=== PATIENT | male | born 1980 | race American Indian/Alaskan Native ===

== ENCOUNTER 2017-11-10 23:48 | Emergency (ER) | payer MEDICARE, MEDICAID ==
[2017-11-11 00:56] VITALS: BP 116/77; PULSE 85; RESP 17; TEMP 98.6; O2SAT 100
[2017-11-11 01:14] LABS: BASO % 0.7 % (0.0-2.0); EOS # 0.2 K/uL (0.0-0.7); EOS % 3.2 % (0.0-4.0); LYMPH # 1.6 K/uL (1.0-4.3); LYMPH % 25.9 % (20.0-40.0); MEAN CELL VOLUME 105.6 fl (80.0-94.0); MEAN CORPUSCULAR HEMOGLOBIN 34.4 pg (27.0-31.0); MEAN CORPUSCULAR HGB CONC 32.6 g/dL (33.0-37.0); MEAN PLATELET VOLUME 8.2 fl (7.2-11.7); MONO # 0.6 K/uL (0.0-0.8); MONO % 9.1 % (0.0-10.0); NEUT # 3.7 K/uL (1.8-7.0); NEUT % 61.1 % (50.0-75.0); RBC 2.63 Mil/uL (4.40-5.90); RED CELL DISTRIBUTION WIDTH 15.8 % (11.5-14.5); WHITE BLOOD COUNT 6.1 K/uL (4.8-10.8)
[2017-11-11 01:35] LABS: ALBUMIN 4.5 g/dL (3.5-5.0); ALT/SGPT 27 U/L (21-72); AST/SGOT 25 U/L (17-59); BLOOD UREA NITROGEN 82 mg/dl (9-20); CALCIUM 9.3 mg/dL (8.4-10.2); GFR AFRICAN-AMERICAN 4; GFR NON-AFRICAN AMERICAN 3; LIPASE 128 U/L (23-300); MAGNESIUM 2.9 MG/DL (1.6-2.3)
[2017-11-11] MEDS ORDERED: HYDROmorphone 0.5 mg/0.5 ml ISec IVP STA (01:41)
[2017-11-11] MEDS ORDERED: Iohexol 240 (50 ml) PO STA (01:45)
[2017-11-11] MEDS ORDERED: Trimethobenzamide 200 mg/2 mL Inj IM ONE (01:50)
[2017-11-11] MEDS ORDERED: DiphenhydrAMINE 50 mg/ml Inj IVP STA (02:11)
[2017-11-11] MEDS ORDERED: Iohexol 240 (50 ml) ONE (02:15)
--- NOTE | 2017-11-11 03:45 | ED PDOC ---
"HPI: Abdomen Time Seen by Provider: 11/11/17 00:44 Chief Complaint (Nursing): Abdominal Pain Chief Complaint (Provider): abdominal pain History Per: Patient (37 y/o male h/o ESRD Dialysis MWF and h/o pancreatitis here with generalized abdominal pain daily this week. NOtes diarrhea multiple episodes yesterday hourly. Denies any vomiting. ) Past Medical History Reviewed: Historical Data, Nursing Documentation, Vital Signs Vital Signs: Last Vital Signs Temp 98.6 F 11/10/17 23:56 Pulse 85 11/10/17 23:56 Resp 17 11/10/17 23:56 BP 116/77 11/10/17 23:56 Pulse Ox 100 11/11/17 03:47 - Medical History PMH: HTN, Hypercholesterolemia, End Stage Renal Disease, Chronic Kidney Disease - Family History Family History: States: No Known Family Hx - Immunization History Hx Tetanus Toxoid Vaccination: No Hx Influenza Vaccination: Yes Hx Pneumococcal Vaccination: Yes - Home Medications Home Medications: Ambulatory Orders Medication Instructions Recorded Calcitriol 1 tab PO DAILY 06/05/17 Calcium Acetate [Phoslo] 667 mg PO TID 06/05/17 Calcium Carbonate 2,500 mg PO Q8H 06/05/17 Cholecalciferol [Vitamin D 1000 IU] 2,000 units PO DAILY 06/05/17 Docusate [Colace] 100 mg PO PRN 06/05/17 HYDROmorphone [Dilaudid 2 mg Tab] 2 mg PO PRN 06/05/17 Esomeprazole Magnesium [Nexium] 20 mg PO DAILY #3 capsule. 11/11/17 - Allergies Allergies/Adverse Reactions: Allergies Allergy/AdvReac Type Severity Reaction Status Date / Time shellfish derived Allergy ANAPHYLAXIS Verified 06/05/17 22:51 Review of Systems ROS Statement: Except As Marked, All Systems Reviewed And Found Negative Gastrointestinal: Positive for: Diarrhea Physical Exam - Reviewed Nursing Documentation Reviewed: Yes Vital Signs Reviewed: Yes - Physical Exam Appears: Positive for: Well, Non-toxic, No Acute Distress Head Exam: Positive for: ATRAUMATIC, NORMAL INSPECTION, NORMOCEPHALIC Skin: Positive for: Normal Color, Warm, DRY Eye Exam: Positive for: EOMI, Normal appearance, PERRL ENT: Positive for: Normal ENT Inspection Neck: Positive for: Normal, Painless ROM Cardiovascular/Chest: Positive for: Regular Rate, Rhythm Respiratory: Positive for: CNT, Normal Breath Sounds Gastrointestinal/Abdominal: Positive for: Normal Exam, Bowel Sounds, Soft, Tenderness (generalized tenderness noted) Back: Positive for: Normal Inspection Extremity: Positive for: Normal ROM Neurologic/Psych: Positive for: Alert, Oriented - Laboratory Results Result Diagrams: 11/11/17 01:10 11/11/17 01:10 - ECG ECG Rhythm: Positive for: Sinus Rhythm (NSR 76bpm no ectopy no acute changes LVH ; QT/QT c 428/481 t wave inv noted avL) O2 Sat by Pulse Oximetry: 100 - Progress ED Course And Treament: zofran 2 mg iv x 1 dose DILAUDID 0.5 MG IV X 1 DOSE ABDOMEN:Limitations: Absence of IV contrast decreases sensitivity for detecting vascular and visceral injury and abnormality. Liver: Unremarkable. Gallbladder and bile ducts: Unremarkable. No ductal dilation. Pancreas: Unremarkable. No ductal dilation. Spleen: Unremarkable. No splenomegaly. Adrenals: Unremarkable. No mass. Kidneys and ureters: Nonobstructive renal stones. Bilateral medullary nephrocalcinosis cortical thinning.There are multiple renal hypodensities that cannot be further characterized on the current examination. Correlation with patient's clinical history of chronic renal failure is recommended. Stomach and bowel: Diverticulosis. No obstruction. No mucosal thickening. Appendix: Normal appendix. PELVIS: Bladder: Partially decompressed bladder with bladder wall thickening versus nonfunctional bladder due to renal failure. Correlation with urinalysis is recommended only if clinical cystitis is suspected. Reproductive: Unremarkable. NATHANIEL HERNÁNDEZ | Final Radiology Report CONFIDENTIALITY STATEMENT This report is intended only for use by the referring physician, and only in accordance with law. If you received this in error, call [phone]. Page 2 of 2 ABDOMEN and PELVIS: Intraperitoneal space: Unremarkable. No free air. No significant fluid collection. Bones/joints: Severe osteopenia osteoporosis with sclerosis representing renal osteodystrophy. Compression fracture deformities of T8 and T9 with vertebroplasty cement. Soft tissues: Right periumbilical fat containing hernia. Ventral hernia. Vasculature: The aorta demonstrates calcified plaque and is mildly ectatic but normal in caliber. No abdominal aortic aneurysm. Advanced atherosclerotic vascular disease likely due to renal failure. Lymph nodes: Unremarkable. No enlarged lymph nodes. IMPRESSION: 1. Renal and bladder findings as described correlation with patient's history of chronic renal failure is recommended. Thank you for allowing us to participate in the care of your patient. Dictated and Authenticated by: Najma Nova MD Patient has appointment for dialysis today at 3pm. Will d/c home for f/u with pmd and dialysis today. Disposition - Clinical Impression Clinical Impression: Gastroenteritis - Patient ED Disposition Is Patient to be Admitted: No - Disposition Referrals: David Valente MD [Primary Care Provider] - Disposition: Routine/Home Disposition Time: 05:48 Condition: FAIR Prescriptions: Esomeprazole Magnesium [Nexium] 20 mg PO DAILY #3 capsule.dr Forms: [employer] (French)"
[2017-11-11] MEDS ORDERED: Sodium Chloride 0.9% 0 ML IV ONE (03:49)
[2017-11-11] MEDS ORDERED: Iohexol 300 100 ML IJ ONE (03:49)
--- NOTE | 2017-11-11 05:19 | CT ---
EXAM: CT Abdomen and Pelvis Without Intravenous Contrast CLINICAL HISTORY: 37 years old, male; Pain; Abdominal pain; Periumbilical; Additional info: Abd pain TECHNIQUE: Axial computed tomography images of the abdomen and pelvis without intravenous contrast. All CT scans at this facility use one or more dose reduction techniques, viz.: automated exposure control; ma/kV adjustment per patient size (including targeted exams where dose is matched to indication; i.e. head); or iterative reconstruction technique. 534 images are submitted.Limitations: Absence of IV contrast decreases sensitivity for detecting vascular and visceral injury and abnormality. Coronal and sagittal reformatted images were created and reviewed. COMPARISON: No relevant prior studies available. FINDINGS: Lower thorax: Bibasilar lingular nonspecific infiltrates are present, consistent with atelectasis or pneumonia. Cardiomegaly. ABDOMEN:Limitations: Absence of IV contrast decreases sensitivity for detecting vascular and visceral injury and abnormality. Liver: Unremarkable. Gallbladder and bile ducts: Unremarkable. No ductal dilation. Pancreas: Unremarkable. No ductal dilation. Spleen: Unremarkable. No splenomegaly. Adrenals: Unremarkable. No mass. Kidneys and ureters: Nonobstructive renal stones. Bilateral medullary nephrocalcinosis cortical thinning.There are multiple renal hypodensities that cannot be further characterized on the current examination. Correlation with patient's clinical history of chronic renal failure is recommended. Stomach and bowel: Diverticulosis. No obstruction. No mucosal thickening. Appendix: Normal appendix. PELVIS: Bladder: Partially decompressed bladder with bladder wall thickening versus nonfunctional bladder due to renal failure. Correlation with urinalysis is recommended only if clinical cystitis is suspected. Reproductive: Unremarkable. ABDOMEN and PELVIS: Intraperitoneal space: Unremarkable. No free air. No significant fluid collection. Bones/joints: Severe osteopenia osteoporosis with sclerosis representing renal osteodystrophy. Compression fracture deformities of T8 and T9 with vertebroplasty cement. Soft tissues: Right periumbilical fat containing hernia. Ventral hernia. Vasculature: The aorta demonstrates calcified plaque and is mildly ectatic but normal in caliber. No abdominal aortic aneurysm. Advanced atherosclerotic vascular disease likely due to renal failure. Lymph nodes: Unremarkable. No enlarged lymph nodes. IMPRESSION: 1. Renal and bladder findings as described correlation with patient's history of chronic renal failure is recommended.
--- NOTE | 2017-11-11 10:58 | RAD ---
HISTORY: routine COMPARISON: CT chest dated 01/31/2014. FINDINGS: LUNGS: Bibasilar atelectasis. PLEURA: No significant pleural effusion identified, no pneumothorax apparent. CARDIOVASCULAR: Atherosclerotic aortic calcifications. Cardiomediastinal silhouette stably enlarged. OSSEOUS STRUCTURES: Unchanged. VISUALIZED UPPER ABDOMEN: Normal. OTHER FINDINGS: None. IMPRESSION: Bibasilar atelectasis.
--- NOTE | 2017-11-11 18:08 | CARD ---
APPROVED REPORT EKG Measurement Heart [id number] DC [id number] [id number] <Conclusion> Normal sinus rhythm Minimal voltage criteria for LVH, may be normal variant Prolonged QT Abnormal ECG
== END 2017-11-11 06:00 | disposition home or self-care (01) ==
LOC: H.ER 23:48
DX: K52.9 Noninfective gastroenteritis and colitis, unspecified (principal); N18.6 End stage renal disease; I12.0 Hypertensive chronic kidney disease with stage 5 chronic kidney disease or end stage renal disease; Z99.2 Dependence on renal dialysis; E78.00 Pure hypercholesterolemia, unspecified
CPT/HCPCS: 71045; 74176; 80053; 83690; 83735; 84484; 85025; 87804; 93005; 96374; 96375; 99282; J1170; J2405

== ENCOUNTER 2017-12-10 01:41 | Inpatient (IN) | payer MEDICARE, MEDICAID ==
[2017-12-10] MEDS ORDERED: Sodium Chloride 0.9% 250 ML IV STA (02:13)
--- NOTE | 2017-12-10 02:31 | ED PDOC ---
HPI: Abdomen Time Seen by Provider: 12/10/17 01:52 Chief Complaint (Nursing): Abdominal Pain Chief Complaint (Provider): Abdominal Pain, Vomiting, and Diarrhea History Per: Patient History/Exam Limitations: no limitations Onset/Duration Of Symptoms: Days (1 day ago) Current Symptoms Are (Timing): Still Present Additional Complaint(s): 37 yo male, brought in by EMS, with a history of end stage renal disease, hyperparathyroidism, and a parathyroidectomy, presents to the ED complaining of abdominal pain, 6 episodes of diarrhea, with blood on the last episode, and 6 episodes of non-bloody, non-bilious vomiting, onset of 1 day ago. Patient is currently on hemodialysis on Tuesday, , and Tuesday. Of note, patient reports of having a fever this morning, but denies any cough, shortness of breath, or chest pain. Past Medical History Reviewed: Historical Data, Nursing Documentation, Vital Signs Vital Signs: Last Vital Signs Temp 97.9 F 12/11/17 00:42 Pulse 79 12/11/17 00:42 Resp 18 12/11/17 00:42 BP 109/71 12/11/17 00:42 Pulse Ox 100 12/11/17 00:42 - Medical History PMH: HTN, Hypercholesterolemia, End Stage Renal Disease, Chronic Kidney Disease Other PMH: hyperparathyroidism - Surgical History Other surgeries: parathyroidectomy - Family History Family History: States: Unknown Family Hx - Social History Current smoker - smoking cessation education provided: No Ex-Smoker (has not smoked in the last 12 months): No Alcohol: None Drugs: Denies - Immunization History Hx Tetanus Toxoid Vaccination: No Hx Influenza Vaccination: Yes Hx Pneumococcal Vaccination: Yes - Home Medications Home Medications: Ambulatory Orders Medication Instructions Recorded Calcitriol 0.5 mcg PO BID 06/05/17 Calcium Acetate [Phoslo] 2 tab PO Q8 06/05/17 Calcium Carbonate 2,500 mg PO Q8H 06/05/17 Cholecalciferol [Vitamin D 1000 IU] 1,000 units PO DAILY 06/05/17 Docusate [Colace] 100 mg PO TID 06/05/17 HYDROmorphone [Dilaudid 2 mg Tab] 2 mg PO Q6 06/05/17 Aspirin [Aspirin Chewable] 81 mg PO DAILY 12/10/17 Calcium Carbonate/Vitamin D2 1 each PO Q8 12/10/17 [Calcium Oys Shell 250 mg Tab] Famotidine [Pepcid] 20 mg PO DAILY 12/10/17 Simvastatin 10 mg PO DAILY 12/10/17 amLODIPine [Norvasc] 5 mg PO DAILY 12/10/17 - Allergies Allergies/Adverse Reactions: Allergies Allergy/AdvReac Type Severity Reaction Status Date / Time shellfish derived Allergy ANAPHYLAXIS Verified 06/05/17 22:51 Review of Systems ROS Statement: Except As Marked, All Systems Reviewed And Found Negative Constitutional: Positive for: Fever Cardiovascular: Negative for: Chest Pain Respiratory: Negative for: Cough, Shortness of Breath Gastrointestinal: Positive for: Vomiting, Abdominal Pain, Diarrhea, Hematochezia. Negative for: Hematemesis Physical Exam - Reviewed Nursing Documentation Reviewed: Yes Vital Signs Reviewed: Yes - Physical Exam Appears: Positive for: Well, Non-toxic, No Acute Distress Head Exam: Positive for: ATRAUMATIC, NORMAL INSPECTION, NORMOCEPHALIC Skin: Positive for: Normal Color, Warm, DRY Eye Exam: Positive for: EOMI, Normal appearance, PERRL ENT: Positive for: Other (dry mucus membranes) Cardiovascular/Chest: Positive for: Regular Rate, Rhythm. Negative for: Murmur Respiratory: Positive for: Normal Breath Sounds. Negative for: Respiratory Distress Gastrointestinal/Abdominal: Positive for: Tenderness (diffuse abdominal tenderness), Other (well-healed surgical scar along the midline from previous peritoneal dialysis catheter). Negative for: Mass, Guarding, Rebound - Laboratory Results Result Diagrams: 12/10/17 02:37 12/10/17 15:00 - ECG O2 Sat by Pulse Oximetry: 98 (RA) Pulse Ox Interpretation: Normal - Critical Care Total Time (In Min): 30 Medical Decision Making Medical Decision Making: Time: --02:12 Impression: --37 yo male with abdominal pain and diarrhea in setting of ESRD Plan: --ECG --labs --lipase --ed urine dip --PTT --PT --Bentyl 20mg PO --Pepcid 20mg IV --IV Fluids --Zofran Inj --Blood Culture --urinalysis --heplock Insertion Reassess --04:40 Labs reviewed and are significant for levels of potassium. Morphine 2mg IVP Sodium Bicarbonate 133.8 meq IV Dextrose 50ml IVP Insulin Human Regular 10 units IV Patient to be admitted to the hospital. Diagnosis: hyperkalemia, ESRD, gastroenteritis --05:[address] Gold, nephrology, covering for Dr. Cooley and she agrees with ordering a stat hemodialysis for the patient. mobile dialysis has been called. Scribe Attestation: Documented by Trenton Martel acting as a scribe for Howard Coleman MD. Provider Attestation: All medical record entries made by the Scribe were at my direction and personally dictated by me. I have reviewed the chart and agree that the record accurately reflects my personal performance of the history, physical exam, medical decision making, and the department course for this patient. I have also personally directed, reviewed, and agree with the discharge instructions and disposition. Disposition - Clinical Impression Clinical Impression: ESRD on hemodialysis, Gastroenteritis, Hyperkalemia - Patient ED Disposition Is Patient to be Admitted: Yes - Disposition Disposition Time: 04:40 Condition: FAIR
[2017-12-10] MEDS ORDERED: Morphine 4 MG/ML VIAL IVP ONE ×2 (02:49→04:41)
[2017-12-10 02:55] LABS: BASO # 0.1 K/uL (0.0-0.2); BASO % 0.9 % (0.0-2.0); EOS # 0.2 K/uL (0.0-0.7); EOS % 3.4 % (0.0-4.0); HEMOGLOBIN 9.6 g/dL (12.0-18.0); LYMPH # 1.9 K/uL (1.0-4.3); LYMPH % 30.6 % (20.0-40.0); MEAN CELL VOLUME 105.2 fl (80.0-94.0); MEAN CORPUSCULAR HEMOGLOBIN 35.2 pg (27.0-31.0); MEAN CORPUSCULAR HGB CONC 33.5 g/dL (33.0-37.0); MEAN PLATELET VOLUME 8.1 fl (7.2-11.7); MONO # 0.6 K/uL (0.0-0.8); MONO % 8.8 % (0.0-10.0); NEUT # 3.5 K/uL (1.8-7.0); NEUT % 56.3 % (50.0-75.0); NRBC % 0.1 % (0.0-0.0); RBC 2.71 Mil/uL (4.40-5.90); RED CELL DISTRIBUTION WIDTH 15.4 % (11.5-14.5); WHITE BLOOD COUNT 6.3 K/uL (4.8-10.8)
[2017-12-10] MEDS ORDERED: Morphine 4 MG/ML VIAL ONE ×2 (02:56→05:20)
[2017-12-10 03:31] LABS: ALBUMIN 4.5 g/dL (3.5-5.0); CALCIUM 7.5 mg/dL (8.4-10.2)
[2017-12-10 03:33] LABS: INR 1.1 (0.9-1.2); PARTIAL THROMBOPLASTIN TIME 37.1 Seconds (25.6-37.1); PROTHROMBIN TIME 12.2 Seconds (9.8-13.1)
[2017-12-10] MEDS ORDERED: Insulin Regular 100 units/ml IV ONE (04:40)
[2017-12-10] MEDS ORDERED: Dextrose 50% SYRINGE Inj (50 ml) IVP ONE ×2 (04:40→06:28)
[2017-12-10] MEDS ORDERED: Sodium Bicarbonate 7.5% (0.9 MEQ/ML) 50ML INJ IV ONE ×2 (04:40→04:47)
[2017-12-10] MEDS ORDERED: Insulin Regular 100 units/ml ONE (04:51)
[2017-12-10] MEDS ORDERED: Dextrose 50% SYRINGE Inj (50 ml) ONE (04:51)
[2017-12-10] MEDS ORDERED: NS IV ONE (05:00)
[2017-12-10] MEDS ORDERED: SODIUM BICARBONATE IV ONE (05:00)
[2017-12-10] MEDS ORDERED: DEXTROSE IV ONE (05:00)
[2017-12-10] MEDS ORDERED: Pravastatin Sodium 20 MG TAB PO SCH (09:00)
[2017-12-10] MEDS ORDERED: Calcium Acetate 667 MG Capsule PO SCH (09:00)
--- NOTE | 2017-12-10 09:55 | RAD ---
HISTORY: admit COMPARISON: Portable chest 11/11/2017. FINDINGS: LUNGS: Linear atelectasis identified in the inferior left lung zone. Probable confluence of vascular structures with the anterior right 5th rib. Infiltrate is difficult to completely exclude here for atelectasis. Remaining lung parmar clear. PLEURA: No significant pleural effusion identified, no pneumothorax apparent. CARDIOVASCULAR: Stable cardiomediastinal silhouette OSSEOUS STRUCTURES: No significant abnormalities. VISUALIZED UPPER ABDOMEN: Normal. OTHER FINDINGS: None. IMPRESSION: Limited linear atelectasis noted at the left base, borderline on the right versus crowding of the vascular markings with the right 5th rib anteriorly. No suspicious interval changes grossly.
[2017-12-10] MEDS: Cholecalciferol 1,000 INTLU TAB PO SCH (12:02)
[2017-12-10] MEDS: Pravastatin Sodium 20 MG TAB PO SCH (12:02)
--- NOTE | 2017-12-10 13:34 | CP.PCM.HP ---
History of Present Illness - History of Present Illness History of Present Illness: CC: Abdominal pain. 37 y/o M, Hx of ESRD on HD, brought by EMS to [facility]Gina to be evaluated for abdominal pain in AM DOA with no relief. Pt was c/o of generalized abdominal pain, sharp pain, moderate intensity 5:10 associated to multiple episodes of vomiting, non bloody, non bilious, also 6 episodes of diarrhea, last one while at home with some bloody stool. Worsening symptoms: Pt c/o of tactile fever, no chills, in AM DOA, Bodyache. Aggravated factor: Food. Pt denied: Syncope, dizziness, CP, palpitations, SOB, cough, urinary symptoms, sick contact, recent travel out [place]. PMHx: ESRD on HD TTS, CKD, HTN, Hyperparathyroidism. Present on Admission - Present on Admission Any Indicators Present on Admission: No Review of Systems - Constitutional Constitutional: Fever (low grade) - EENT Eyes: Other (negative) Ears: Other (negative) Nose/Mouth/Throat: Other (negative) - Cardiovascular Cardiovascular: Other (negative) - Respiratory Respiratory: Other (negative) - Gastrointestinal Gastrointestinal: Abdominal Pain, Diarrhea, Vomiting - Genitourinary Genitourinary: Other (negative) - Musculoskeletal Musculoskeletal: Other (bodyache) - Integumentary Integumentary: Other (negative) - Neurological Neurological: Other (negative) - Psychiatric Psychiatric: Other (negative) - Hematologic/Lymphatic Hematologic: Other (negative) Past Patient History - Infectious Disease Hx of Infectious Diseases: None - Past Social History Smoking Status: Never Smoked - CARDIAC Hx Cardiac Disorders: Yes Hx Hypercholesterolemia: Yes Hx Peripheral Edema: Yes - PULMONARY Hx Respiratory Disorders: No - NEUROLOGICAL Hx Neurological Disorder: No - HEENT Hx HEENT Problems: No - RENAL Hx Chronic Kidney Disease: Yes Hx Dialysis: Yes Type of Dialysis Access: Left arm AV Shunt Date of Last Dialysis Treatment: 12/08/17 - ENDOCRINE/METABOLIC Hx Endocrine Disorders: Yes Hx Hyperthyroidism: Yes - HEMATOLOGICAL/ONCOLOGICAL Hx Blood Disorders: Yes Hx Anemia: Yes - MUSCULOSKELETAL/RHEUMATOLOGICAL Hx Falls: No - GENITOURINARY/GYNECOLOGICAL Hx Genitourinary Disorders: No - PSYCHIATRIC Hx Psychophysiologic Disorder: No Hx Substance Use: No - SURGICAL HISTORY Hx Surgeries: Yes Hx Arteriovenous Shunt: Yes Hx Joint Replacement: Yes Other/Comment: bilateral knee replacement, left arm shut, Perm a cath back sx. - ANESTHESIA Hx Anesthesia: Yes Meds Allergies/Adverse Reactions: Allergies Allergy/AdvReac Type Severity Reaction Status Date / Time shellfish derived Allergy ANAPHYLAXIS Verified 06/05/17 22:51 Physical Exam - Constitutional Appears: No Acute Distress - Head Exam Head Exam: NORMAL INSPECTION - Eye Exam Eye Exam: PERRL - ENT Exam ENT Exam: Normal Exam - Neck Exam Neck exam: Positive for: Normal Inspection - Respiratory Exam Respiratory Exam: NORMAL BREATHING PATTERN - Cardiovascular Exam Cardiovascular Exam: REGULAR RHYTHM - GI/Abdominal Exam GI & Abdominal Exam: Normal Bowel Sounds, Soft Additional comments: Midline surgical scar healed. - Extremities Exam Additional comments: L arm AV shunt. B/L TKR - Back Exam Back exam: NORMAL INSPECTION - Neurological Exam Neurological exam: Alert, Oriented x3 Additional comments: No motor /sensory deficit. - Psychiatric Exam Psychiatric exam: Normal Mood - Skin Skin Exam: Warm Results - Vital Signs Recent Vital Signs: Last Vital Signs Temp 97.4 F L 12/10/17 12:20 Pulse 73 12/10/17 12:20 Resp 18 12/10/17 12:20 BP 106/68 12/10/17 12:20 Pulse Ox 100 12/10/17 12:20 reviewed [email or web address].[email or web address] - Labs Result Diagrams: 12/10/17 02:37 12/10/17 15:00 Labs: Laboratory Results - last 24 hr 12/10/17 12/10/17 12/10/17 02:37 02:37 02:37 WBC 6.3 RBC 2.71 L Hgb 9.6 L Hct 28.6 L MCV 105.2 H MCH 35.2 H MCHC 33.5 RDW 15.4 H Plt Count 143 MPV 8.1 Neut % (Auto) 56.3 Lymph % (Auto) 30.6 [place] % (Auto) 8.8 Eos % (Auto) 3.4 Baso % (Auto) 0.9 Neut # (Auto) 3.5 Lymph # (Auto) 1.9 [place] # (Auto) 0.6 Eos # (Auto) 0.2 Baso # (Auto) 0.1 PT 12.2 INR 1.1 APTT 37.1 Sodium 138 Potassium 6.5 H* Chloride 91 L Carbon Dioxide 26 Anion Gap 28 H BUN 87 H Creatinine 15.7 H* Est GFR ( Amer) 4 Est GFR (Non-Af Amer) 4 POC Glucose (mg/dL) Random Glucose 84 Calcium 7.5 L Total Bilirubin 1.1 AST 32 ALT 18 L D Alkaline Phosphatase 69 Total Protein 9.1 H Albumin 4.5 Globulin 4.7 H Albumin/Globulin Ratio 1.0 Lipase 142 12/10/17 12/10/17 12/10/17 04:01 06:27 06:34 WBC RBC Hgb Hct MCV MCH MCHC RDW Plt Count MPV Neut % (Auto) Lymph % (Auto) [place] % (Auto) Eos % (Auto) Baso % (Auto) Neut # (Auto) Lymph # (Auto) [place] # (Auto) Eos # (Auto) Baso # (Auto) PT INR APTT Sodium Potassium 7.0 H* Chloride Carbon Dioxide Anion Gap BUN Creatinine Est GFR ( Amer) Est GFR (Non-Af Amer) POC Glucose (mg/dL) 38 L* 184 H Random Glucose Calcium Total Bilirubin AST ALT Alkaline Phosphatase Total Protein Albumin Globulin Albumin/Globulin Ratio Lipase reviewed J.P. - Imaging and Cardiology Chest x-ray Status: Report reviewed by me (J.P.) Assessment & Plan (1) Gastroenteritis Status: Acute Priority: High (2) Abdominal pain Status: Acute Priority: High (3) ESRD on hemodialysis Status: Chronic Priority: High (4) Hyperkalemia Status: Acute Priority: High - Assessment and Plan (Free Text) Plan: F/U EKG, Blood C-S, Hepatitis panel, continue Dilaudid, Norvasc. Pepcid and rest of Tx. Nephrology consult. - Date & Time Date: 12/10/17 Time: 13:50
[2017-12-10 16:43] LABS: ALBUMIN 4.1 g/dL (3.5-5.0)
--- NOTE | 2017-12-10 18:11 | CP.PCM.CON ---
History of Present Illness - History of Present Illness History of Present Illness: RENAL CONSULT NOTE 37 yr old with esrd, htn, hd tts, admitted with abdominal pain, diarrhea, blood in stools. no edema. no missed hd sessions. 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 and goes to [facility] in [place] noted to have hyperkalemic hence dialysed early this am, emergently Review of Systems - Review of Systems All systems: reviewed and no additional remarkable complaints except Past Patient History - Infectious Disease Hx of Infectious Diseases: None - Past Social History Smoking Status: Never Smoked - CARDIAC Hx Cardiac Disorders: Yes Hx Hypercholesterolemia: Yes Hx Peripheral Edema: Yes - RENAL Hx Chronic Kidney Disease: Yes Hx Dialysis: Yes Type of Dialysis Access: Left arm AV Shunt Date of Last Dialysis Treatment: 12/08/17 - ENDOCRINE/METABOLIC Hx Hyperthyroidism: Yes - MUSCULOSKELETAL/RHEUMATOLOGICAL Hx Falls: No - PSYCHIATRIC Hx Substance Use: No - SURGICAL HISTORY Hx Arteriovenous Shunt: Yes Hx Joint Replacement: Yes Other/Comment: bilateral knee replacement, left arm shut, Perm a cath back sx. - ANESTHESIA Hx Anesthesia: Yes Meds Allergies/Adverse Reactions: Allergies Allergy/AdvReac Type Severity Reaction Status Date / Time shellfish derived Allergy ANAPHYLAXIS Verified 06/05/17 22:51 - Medications Medications: Current Medications Amlodipine Besylate (Norvasc) 5 mg PO DAILY [facility] Last Admin: 12/10/17 10:10 Dose: Not Given Aspirin (Aspirin Chewable) 81 mg PO DAILY [facility] Last Admin: 12/10/17 11:56 Dose: Not Given Calcitriol (Rocaltrol) 0.5 mcg PO BID [facility] Last Admin: 12/10/17 12:02 Dose: Not Given Calcium Acetate (Phoslo) 1,334 mg PO TIDWM [facility] Last Admin: 12/10/17 16:03 Dose: Not Given Cholecalciferol (Vitamin D) 1,000 intlu PO DAILY [facility] Last Admin: 12/10/17 12:02 Dose: Not Given Docusate Sodium (Colace) 100 mg PO TID [facility] Last Admin: 12/10/17 16:02 Dose: Not Given Famotidine (Pepcid) 20 mg PO DAILY [facility] Last Admin: 12/10/17 12:02 Dose: Not Given Hydromorphone HCl (Dilaudid) 2 mg PO Q6 PRN PRN Reason: Pain, severe (8-10) Last Admin: 12/10/17 11:48 Dose: 2 mg Ondansetron HCl (Zofran Inj) 4 mg IVP Q6 PRN PRN Reason: Nausea/Vomiting Pravastatin Sodium (Pravachol) 20 mg PO DAILY [facility] Last Admin: 12/10/17 12:02 Dose: Not Given Physical Exam - Constitutional Appears: Non-toxic, No Acute Distress - Head Exam Head Exam: NORMAL INSPECTION - Eye Exam Eye Exam: Normal appearance - ENT Exam ENT Exam: Mucous Membranes Moist - Neck Exam Neck exam: Positive for: Normal Inspection - Respiratory Exam Respiratory Exam: NORMAL BREATHING PATTERN - Cardiovascular Exam Cardiovascular Exam: +S1, +S2 - GI/Abdominal Exam GI & Abdominal Exam: Soft - Extremities Exam Extremities exam: Positive for: normal inspection - Neurological Exam Neurological exam: Alert, Oriented x3 - Psychiatric Exam Psychiatric exam: Normal Mood - Skin Skin Exam: Dry, Intact Results - Vital Signs Recent Vital Signs: Last Vital Signs Temp 98.3 F 12/10/17 16:34 Pulse 78 12/10/17 16:34 Resp 16 12/10/17 16:34 BP 108/71 12/10/17 16:34 Pulse Ox 96 12/10/17 16:34 - Labs Result Diagrams: 12/10/17 02:37 12/10/17 15:00 Labs: Laboratory Results - last 24 hr 12/10/17 12/10/17 12/10/17 02:37 02:37 02:37 WBC 6.3 RBC 2.71 L Hgb 9.6 L Hct 28.6 L MCV 105.2 H MCH 35.2 H MCHC 33.5 RDW 15.4 H Plt Count 143 MPV 8.1 Neut % (Auto) 56.3 Lymph % (Auto) 30.6 [place] % (Auto) 8.8 Eos % (Auto) 3.4 Baso % (Auto) 0.9 Neut # (Auto) 3.5 Lymph # (Auto) 1.9 [place] # (Auto) 0.6 Eos # (Auto) 0.2 Baso # (Auto) 0.1 PT 12.2 INR 1.1 APTT 37.1 Sodium 138 Potassium 6.5 H* Chloride 91 L Carbon Dioxide 26 Anion Gap 28 H BUN 87 H Creatinine 15.7 H* Est GFR ( Amer) 4 Est GFR (Non-Af Amer) 4 POC Glucose (mg/dL) Random Glucose 84 Calcium 7.5 L Total Bilirubin 1.1 AST 32 ALT 18 L D Alkaline Phosphatase 69 Total Protein 9.1 H Albumin 4.5 Globulin 4.7 H Albumin/Globulin Ratio 1.0 Lipase 142 12/10/17 12/10/17 12/10/17 04:01 06:27 06:34 WBC RBC Hgb Hct MCV MCH MCHC RDW Plt Count MPV Neut % (Auto) Lymph % (Auto) [place] % (Auto) Eos % (Auto) Baso % (Auto) Neut # (Auto) Lymph # (Auto) [place] # (Auto) Eos # (Auto) Baso # (Auto) PT INR APTT Sodium Potassium 7.0 H* Chloride Carbon Dioxide Anion Gap BUN Creatinine Est GFR ( Amer) Est GFR (Non-Af Amer) POC Glucose (mg/dL) 38 L* 184 H Random Glucose Calcium Total Bilirubin AST ALT Alkaline Phosphatase Total Protein Albumin Globulin Albumin/Globulin Ratio Lipase 12/10/17 15:00 WBC RBC Hgb Hct MCV MCH MCHC RDW Plt Count MPV Neut % (Auto) Lymph % (Auto) [place] % (Auto) Eos % (Auto) Baso % (Auto) Neut # (Auto) Lymph # (Auto) [place] # (Auto) Eos # (Auto) Baso # (Auto) PT INR APTT Sodium 138 Potassium 5.1 H Chloride 93 L Carbon Dioxide 29 Anion Gap 21 H BUN 42 H Creatinine 9.6 H* D Est GFR ( Amer) 8 Est GFR (Non-Af Amer) 6 POC Glucose (mg/dL) Random Glucose 115 H Calcium 8.0 L Total Bilirubin 1.0 AST 34 ALT 21 Alkaline Phosphatase 71 Total Protein 8.3 H Albumin 4.1 Globulin 4.2 H Albumin/Globulin Ratio 1.0 Lipase Assessment & Plan - Assessment and Plan (Free Text) Plan: ESRD/HYperkalemia/sec hyperpth/anemia/diarrhea hd tts, done today follow potassium levels continue binders and calcitriol anemia: epo with next hd diarrhea and blood in stools work up per primary team please call us jose [phone]
--- NOTE | 2017-12-10 19:03 | CARD ---
APPROVED REPORT EKG Measurement Heart [id number] <Conclusion> Normal sinus rhythm Prolonged QT Abnormal ECG
[2017-12-11] MEDS: Cholecalciferol 1,000 INTLU TAB PO SCH (09:56)
[2017-12-11] MEDS: Pravastatin Sodium 20 MG TAB PO SCH (09:56)
[2017-12-11 12:12] LABS: HEMOGLOBIN 9.3 g/dL (12.0-18.0); MEAN CELL VOLUME 105.7 fl (80.0-94.0); MEAN CORPUSCULAR HEMOGLOBIN 35.4 pg (27.0-31.0); MEAN CORPUSCULAR HGB CONC 33.5 g/dL (33.0-37.0); RBC 2.63 Mil/uL (4.40-5.90); RED CELL DISTRIBUTION WIDTH 15.2 % (11.5-14.5); WHITE BLOOD COUNT 4.9 K/uL (4.8-10.8)
[2017-12-11 12:38] LABS: ALBUMIN 3.9 g/dL (3.5-5.0); CALCIUM 7.8 mg/dL (8.4-10.2)
[2017-12-11 13:05] LABS: HEPATITIS B SURFACE AG Negative (NEGATIVE)
[2017-12-11 13:11] LABS: HEPATITIS A IGM NEGATIVE (NEGATIVE); HEPATITIS B CORE AB NEGATIVE (NEGATIVE)
[2017-12-11 13:22] LABS: HEPATITIS C ANTIBODY NEGATIVE (NEGATIVE)
--- NOTE | 2017-12-11 15:32 | CP.PCM.DIS ---
Provider - Provider Date of Admission: 12/10/17 04:42 Attending physician: Mann Vaca MD Diagnosis - Discharge Diagnosis (1) Gastroenteritis Status: Acute Priority: High (2) Abdominal pain Status: Acute Priority: High (3) ESRD on hemodialysis Status: Chronic Priority: High (4) Hyperkalemia Status: Acute Priority: High Hospital Course - Lab Results Lab Results: Micro Results 12/10/17 02:37 Blood Blood Culture - Preliminary NO GROWTH AFTER 24 HOURS 12/10/17 02:37 Blood Blood Culture - Preliminary NO GROWTH AFTER 24 HOURS Most Recent Lab Values WBC 4.9 K/uL (4.8-10.8) 12/11/17 12:00 RBC 2.63 Mil/uL (4.40-5.90) L 12/11/17 12:00 Hgb 9.3 g/dL (12.0-18.0) L 12/11/17 12:00 Hct 27.8 % (35.0-51.0) L 12/11/17 12:00 MCV 105.7 fl (80.0-94.0) H 12/11/17 12:00 MCH 35.4 pg (27.0-31.0) H 12/11/17 12:00 MCHC 33.5 g/dL (33.0-37.0) 12/11/17 12:00 RDW 15.2 % (11.5-14.5) H 12/11/17 12:00 Plt Count 119 K/uL (130-400) L D 12/11/17 12:00 MPV 8.1 fl (7.2-11.7) 12/10/17 02:37 Neut % (Auto) 56.3 % (50.0-75.0) 12/10/17 02:37 Lymph % (Auto) 30.6 % (20.0-40.0) 12/10/17 02:37 [place] % (Auto) 8.8 % (0.0-10.0) 12/10/17 02:37 Eos % (Auto) 3.4 % (0.0-4.0) 12/10/17 02:37 Baso % (Auto) 0.9 % (0.0-2.0) 12/10/17 02:37 Neut # (Auto) 3.5 K/uL (1.8-7.0) 12/10/17 02:37 Lymph # (Auto) 1.9 K/uL (1.0-4.3) 12/10/17 02:37 [place] # (Auto) 0.6 K/uL (0.0-0.8) 12/10/17 02:37 Eos # (Auto) 0.2 K/uL (0.0-0.7) 12/10/17 02:37 Baso # (Auto) 0.1 K/uL (0.0-0.2) 12/10/17 02:37 PT 12.2 Seconds (9.8-13.1) 12/10/17 02:37 INR 1.1 (0.9-1.2) 12/10/17 02:37 APTT 37.1 Seconds (25.6-37.1) 12/10/17 02:37 Sodium 140 mmol/l (132-148) 12/11/17 12:00 Potassium 5.3 MMOL/L (3.6-5.0) H 12/11/17 12:00 Chloride 92 mmol/L (98-107) L 12/11/17 12:00 Carbon Dioxide 29 mmol/L (22-30) 12/11/17 12:00 Anion Gap 24 (10-20) H 12/11/17 12:00 BUN 56 mg/dl (9-20) H 12/11/17 12:00 Creatinine 12.1 mg/dl (0.8-1.5) H* D 12/11/17 12:00 Est GFR ( Amer) 6 12/11/17 12:00 Est GFR (Non-Af Amer) 5 12/11/17 12:00 POC Glucose (mg/dL) 184 mg/dL (65-110) H 12/10/17 06:34 Random Glucose 85 mg/dL (75-110) 12/11/17 12:00 Calcium 7.8 mg/dL (8.4-10.2) L 12/11/17 12:00 Total Bilirubin 0.8 mg/dl (0.2-1.3) 12/11/17 12:00 AST 23 U/L (17-59) 12/11/17 12:00 ALT 16 U/L (21-72) L D 12/11/17 12:00 Alkaline Phosphatase 66 U/L (38-126) 12/11/17 12:00 Total Protein 7.8 G/DL (6.3-8.2) 12/11/17 12:00 Albumin 3.9 g/dL (3.5-5.0) 12/11/17 12:00 Globulin 3.9 gm/dL (2.2-3.9) 12/11/17 12:00 Albumin/Globulin Ratio 1.0 (1.0-2.1) 12/11/17 12:00 Lipase 142 U/L (23-300) 12/10/17 02:37 Hepatitis A IgM Ab Negative (NEGATIVE) 12/10/17 11:10 Hep Bs Antigen Negative (NEGATIVE) 12/10/17 11:10 Hep B Core IgM Ab Negative (NEGATIVE) 12/10/17 11:10 Hepatitis C Antibody Negative (NEGATIVE) 12/10/17 11:10 Discharge Exam - Head Exam Head Exam: ATRAUMATIC, NORMAL INSPECTION, NORMOCEPHALIC Discharge Plan - Follow Up Plan Condition: FAIR Disposition: HOME/ ROUTINE
[2017-12-11 17:01] VITALS: BP 117/77; PULSE 80; RESP 16; TEMP 98; O2SAT 100
--- NOTE | 2017-12-12 10:53 | PQF GENQUE ---
Dr. Vaca, Please clarify the type of anemia: if known: i.e. Blood loss anemia, acute Blood loss anemia, chronic Chronic anemia Deficiency anemia (please specify type) Due to/in/with antineoplastic chemotherapy Due to/in/with chronic kidney disease Due to/in/with kidney failure Due to/in/with neoplastic disease Iron deficiency anemia Macrocytic anemia Microcytic anemia Normocytic anemia Postoperative blood loss anemia Pernicious anemia Other anemia (please specify) Clinically unable to determine Unknown H/H:9.6/28.6->9.3/27.8 H and P: Hx. of Anemia: YES Assessment: (1) Gastroenteritis Status: Acute Priority: High (2) Abdominal pain Status: Acute Priority: High (3) ESRD on hemodialysis Status: Chronic Priority: High (4) Hyperkalemia Status: Acute Priority: High Renal consult: Impression: ESRD/HYperkalemia/sec hyperpth/anemia/diarrhea --- anemia: epo with next hd This form is a permanent part of the medical record Clarification of your documentation is requested to better reflect the severity of illness and intensity of treatment of your patient. Indicators present [] Specify: [] [] Specify: [] [] Specify: [] [] Specify: [] Location in the medical record that reflects the above clinical findings: [] Treatment Provided: [] PHYSICIAN'S RESPONSE Based on your medical judgment of the clinical indicators outlined above please clarify the following: [] Practitioner response [] If unable to determine, please check the box, sign and date. Present On Admission (POA) Indicator: [] Present at the time of admission [] Not present at the time of admission [] Clinically Undetermined In responding to this query, please exercise your independent professional judgment. The fact that a question is asked does not imply that any particular answer is desired or expected. Thank you for your clarification on this documentation. If you have any questions please call. * Thank you, Geneva Sandoval RN ext. #[phone] MTDD
== END 2017-12-11 18:24 | disposition home or self-care (01) | DRG 391 ==
LOC: H.ER 01:41 → H.ERHOLD 04:42 → H.TEL 06:40
PROVIDERS: ADMIT Internal Medicine Pulmonary Disease; ATTEND Internal Medicine Pulmonary Disease
PROC: 5A1D70Z Performance of Urinary Filtration, Intermittent, Less than 6 Hours Per Day (ICD-10-PCS; principal; 2017-12-10)
DX: K52.9 Noninfective gastroenteritis and colitis, unspecified (principal); N18.6 End stage renal disease; E87.5 Hyperkalemia; I12.0 Hypertensive chronic kidney disease with stage 5 chronic kidney disease or end stage renal disease; N25.81 Secondary hyperparathyroidism of renal origin; K92.1 Melena; Z99.2 Dependence on renal dialysis; Z96.653 Presence of artificial knee joint, bilateral; E78.00 Pure hypercholesterolemia, unspecified; Z91.013 Allergy to seafood; D64.9 Anemia, unspecified

== ENCOUNTER 2017-12-22 19:55 | Inpatient (IN) | payer MEDICARE, MEDICAID ==
[2017-12-22 21:32] LABS: BASO % 0.3 % (0.0-2.0); EOS # 0.3 K/uL (0.0-0.7); EOS % 4.9 % (0.0-4.0); HEMOGLOBIN 9.8 g/dL (12.0-18.0); LYMPH # 1.9 K/uL (1.0-4.3); LYMPH % 30.4 % (20.0-40.0); MEAN CELL VOLUME 106.7 fl (80.0-94.0); MEAN CORPUSCULAR HEMOGLOBIN 35.8 pg (27.0-31.0); MEAN CORPUSCULAR HGB CONC 33.5 g/dL (33.0-37.0); MEAN PLATELET VOLUME 8.4 fl (7.2-11.7); MONO # 0.5 K/uL (0.0-0.8); MONO % 8.8 % (0.0-10.0); NEUT # 3.4 K/uL (1.8-7.0); NEUT % 55.6 % (50.0-75.0); RBC 2.75 Mil/uL (4.40-5.90); RED CELL DISTRIBUTION WIDTH 15.8 % (11.5-14.5); WHITE BLOOD COUNT 6.2 K/uL (4.8-10.8)
[2017-12-22 21:44] LABS: INR 1.1 (0.9-1.2); PARTIAL THROMBOPLASTIN TIME 35.6 Seconds (25.6-37.1); PROTHROMBIN TIME 12.2 Seconds (9.8-13.1)
[2017-12-22 22:12] LABS: ALBUMIN 4.4 g/dL (3.5-5.0); ALT/SGPT 24 U/L (21-72); AST/SGOT 28 U/L (17-59); CALCIUM 8.4 mg/dL (8.4-10.2)
[2017-12-22 22:13] LABS: BLOOD UREA NITROGEN 83 mg/dl (9-20); GFR AFRICAN-AMERICAN 4; GFR NON-AFRICAN AMERICAN 3
[2017-12-22] MEDS ORDERED: Sodium Bicarbonate 7.5% (0.9 MEQ/ML) 50ML INJ IV ONE (22:13)
[2017-12-22] MEDS ORDERED: Insulin Regular 100 units/ml IV ONE (22:13)
[2017-12-22] MEDS ORDERED: Dextrose 50% SYRINGE Inj (50 ml) IVP ONE (22:13)
[2017-12-22] MEDS ORDERED: Sod Polystyrene Sulf 15 gm/60 ml Susp PO STA (22:22)
[2017-12-22] MEDS ORDERED: Sod Polystyrene Sulf 15 gm/60 ml Susp ONE (22:45)
--- NOTE | 2017-12-22 22:46 | ED PDOC ---
HPI: General Adult Time Seen by Provider: 12/22/17 20:20 Chief Complaint (Nursing): GI Problem Chief Complaint (Provider): GI Problem History Per: Patient History/Exam Limitations: no limitations Onset/Duration Of Symptoms: Days (x1) Current Symptoms Are (Timing): Still Present Additional Complaint(s): 37 year old male with a past medical history of hyperparathyroidism, HTN, end stage renal disease (dialysis T/TH/Sat), left AV fistula, b/l knee replacement, and perineal catheter, who presents to the ED complaining of hematochezia x1 day. Patient reports 2 episodes of blood tinged diarrhea. Also reports several episodes of vomiting with small amounts of blood , no clots. Denies melena. Of note, patient reports missing dialysis today. PMD: Dr. GONZALES Past Medical History Reviewed: Historical Data, Nursing Documentation, Vital Signs Vital Signs: Last Vital Signs Temp 97.7 F 12/23/17 01:06 Pulse 72 12/23/17 01:06 Resp 16 12/23/17 01:06 BP 129/92 H 12/23/17 01:06 Pulse Ox 99 12/23/17 01:06 - Medical History PMH: Anemia, HTN, Hypercholesterolemia, Hyperthyroidism, Peripheral Edema, End Stage Renal Disease (dialysis T//Tue), Chronic Kidney Disease - Surgical History Other surgeries: b/l knee replacement - Family History Family History: States: Unknown Family Hx - Immunization History Hx Tetanus Toxoid Vaccination: No Hx Influenza Vaccination: Yes Hx Pneumococcal Vaccination: Yes - Home Medications Home Medications: Ambulatory Orders Medication Instructions Recorded Calcitriol 0.5 mcg PO BID 06/05/17 Calcium Acetate [Phoslo] 2 tab PO Q8 06/05/17 Calcium Carbonate 2,500 mg PO Q8H 06/05/17 Cholecalciferol [Vitamin D 1000 IU] 1,000 units PO DAILY 06/05/17 Docusate [Colace] 100 mg PO TID 06/05/17 HYDROmorphone [Dilaudid] 2 mg PO Q6 06/05/17 Aspirin [Aspirin Chewable] 81 mg PO DAILY 12/10/17 Calcium Carbonate/Vitamin D2 1 each PO Q8 12/10/17 [Calcium Oys Shell 250 mg Tab] Famotidine [Pepcid] 20 mg PO DAILY 12/10/17 Simvastatin 10 mg PO DAILY 12/10/17 amLODIPine [Norvasc] 5 mg PO DAILY 12/10/17 - Allergies Allergies/Adverse Reactions: Allergies Allergy/AdvReac Type Severity Reaction Status Date / Time shellfish derived Allergy ANAPHYLAXIS Verified 12/22/17 19:58 Review of Systems ROS Statement: Except As Marked, All Systems Reviewed And Found Negative Constitutional: Negative for: Fever Gastrointestinal: Positive for: Vomiting, Diarrhea, Hematochezia, Hematemesis. Negative for: Abdominal Pain Physical Exam - Reviewed Nursing Documentation Reviewed: Yes Vital Signs Reviewed: Yes - Physical Exam Appears: Positive for: Non-toxic, No Acute Distress Head Exam: Positive for: ATRAUMATIC, NORMAL INSPECTION, NORMOCEPHALIC Skin: Positive for: Normal Color, Warm, Dry Eye Exam: Positive for: EOMI, Normal appearance, PERRL ENT: Positive for: Normal ENT Inspection Neck: Positive for: Normal, Painless ROM, Supple Cardiovascular/Chest: Positive for: Regular Rate, Rhythm. Negative for: Murmur Respiratory: Positive for: Normal Breath Sounds. Negative for: Respiratory Distress Gastrointestinal/Abdominal: Positive for: Tenderness (mild epigastric) Back: Positive for: Normal Inspection. Negative for: L CVA Tenderness, R CVA Tenderness, Vertebral Tenderness Extremity: Positive for: Normal ROM. Negative for: Pedal Edema, Deformity Neurologic/Psych: Positive for: Alert, Oriented (x3). Negative for: Motor/ Sensory Deficits - Laboratory Results Result Diagrams: 12/22/17 21:27 12/22/17 21:27 - ECG O2 Sat by Pulse Oximetry: 97 (RA) Pulse Ox Interpretation: Normal - Critical Care Total Time (In Min): 30 Medical Decision Making Medical Decision Making: Time: 20:43 Initial Impression: 37 year old male with GI bleed in setting of known dialysis Plan: --ABO/RH --Blood type and screen --EKG --Alcohol serum --CMP --Drug screen --CBC w/ differential --PTT/PT --Protonix 80 mg IV --Occult Blood, Stool --Reevaluation Time: 22:30 Labs show marked elevation of potassium. --Sodium Bicarbonate --Kayexalate --Dextrose --Insulin Case discussed with Dr. Cooley and STAT dialysis ordered. Patient will be admitted for GI bleed, hyperkalemia, and end stage renal disease. 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 Scribe Attestation: Documented by Jonathon Geiger, acting as a scribe for Howard Coleman MD. Provider Scribe Attestation: All medical record entries made by the Scribe were at my direction and personally dictated by me. I have reviewed the chart and agree that the record accurately reflects my personal performance of the history, physical exam, medical decision making, and the department course for this patient. I have also personally directed, reviewed, and agree with the discharge instructions and disposition. Disposition - Clinical Impression Clinical Impression: Hyperkalemia, Gastrointestinal hemorrhage, End stage renal disease - Patient ED Disposition Is Patient to be Admitted: Yes Counseled Patient/Family Regarding: Studies Performed, Diagnosis - Disposition Disposition Time: 22:30 Condition: GUARDED - Pt Status Changed To: Hospital Disposition Of: Inpatient - Admit Certification Admit to Inpatient:: After my assessment, the patient will require hospitalization for at least two midnights. This is because of the severity of symptoms shown, intensity of services needed, and/or the medical risk in this patient being treated as an outpatient.
[2017-12-22] MEDS ORDERED: Dextrose 50% SYRINGE Inj (50 ml) ONE (22:53)
[2017-12-23] MEDS ORDERED: Pantoprazole 40 MG in Sodium Chloride 0.9% 100 ML IV SCH ×2 (00:15→09:30)
[2017-12-23] MEDS ORDERED: Dextrose 50% SYRINGE Inj (50 ml) IVP ONE (00:24)
--- NOTE | 2017-12-23 09:24 | CP.PCM.HP ---
<Jorge Sapp - Last Filed: 12/23/17 11:50> History of Present Illness - History of Present Illness History of Present Illness: patient evaluated with Dr Morales during rounds 37 y/o M, Hx of ESRD, HTN on HD, presented to ER [facility], c/o abdominal pain. Pt was c/o of generalized abdominal pain, sharp pain, moderate intensity 7:10 associated to multiple episodes of vomiting, some of them with light red blood present and mucus at the beginning and hematochezia that resolved. Pt c/o of fever Yesterday of 102 at home, no chills, cough, dizziness or CP. Patient was admitted to hosp for similar complains last month. Patient takes dilaudid PO at home for "chronic pain". States he missed only 1 HD session. Pt denied: Syncope , dizziness, CP, palpitations, SOB, cough, urinary symptoms, recent travel out [facility]. Admits sick contatc with cold like symptoms. At ED he was found to be hyperkalemic and BUN creat was very elevated. HE was called for emergency HD which he finished overnight. This morning he feels tired and still c/o abd pain for what he was given 1 mg of Morphine overnight. Denies new episodes of hematochezia or hematemesis PMHx: ESRD on HD TTS, HTN, Hyperparathyroidism. Present on Admission - Present on Admission Any Indicators Present on Admission: No Review of Systems - Review of Systems All systems: reviewed and no additional remarkable complaints except - Constitutional Constitutional: Malaise - Gastrointestinal Gastrointestinal: Abdominal Pain, Hematemesis, Hematochezia Past Patient History - Infectious Disease Hx of Infectious Diseases: None - Past Medical History & Family History Past Medical History?: Yes - Past Social History Smoking Status: Never Smoked - CARDIAC Hx Cardiac Disorders: Yes Hx Hypercholesterolemia: Yes Hx Hypertension: Yes Hx Peripheral Edema: Yes - PULMONARY Hx Respiratory Disorders: No - NEUROLOGICAL Hx Neurological Disorder: No - HEENT Hx HEENT Problems: No - RENAL Hx Chronic Kidney Disease: Yes Hx Dialysis: Yes Type of Dialysis Access: Left AV fistula Date of Last Dialysis Treatment: 12/23/17 - ENDOCRINE/METABOLIC Hx Endocrine Disorders: Yes Hx Hyperthyroidism: Yes - HEMATOLOGICAL/ONCOLOGICAL Hx Blood Disorders: Yes Hx AIDS: No Hx Anemia: Yes Hx Human Immunodeficiency Virus (HIV): No - INTEGUMENTARY Hx Dermatological Problems: No - MUSCULOSKELETAL/RHEUMATOLOGICAL Hx Falls: No - GASTROINTESTINAL Hx Gastrointestinal Disorders: No - GENITOURINARY/GYNECOLOGICAL Hx Genitourinary Disorders: No - PSYCHIATRIC Hx Psychophysiologic Disorder: No Hx Substance Use: No - SURGICAL HISTORY Hx Surgeries: Yes Hx Arteriovenous Shunt: Yes Hx Joint Replacement: Yes Other/Comment: bilateral knee replacement, left arm shunt, Permacath, back sx. - ANESTHESIA Hx Anesthesia: Yes Hx Anesthesia Reactions: No Hx Malignant Hyperthermia: No Has any member of the family had a problem w/ anesthesia?: No Meds Allergies/Adverse Reactions: Allergies Allergy/AdvReac Type Severity Reaction Status Date / Time shellfish derived Allergy ANAPHYLAXIS Verified 12/22/17 19:58 Physical Exam - Constitutional Appears: Chronically Ill - Eye Exam Eye Exam: EOMI, PERRL - ENT Exam ENT Exam: Mucous Membranes Moist - Respiratory Exam Respiratory Exam: Clear to Auscultation Bilateral, NORMAL BREATHING PATTERN. absent: Decreased Breath Sounds, Respiratory Distress - Cardiovascular Exam Cardiovascular Exam: REGULAR RHYTHM, +S1, +S2. absent: Gallop - GI/Abdominal Exam GI & Abdominal Exam: Guarding (Mild), Soft, Tenderness (Diffuse). absent: Distended, Rebound, Rigid - Extremities Exam Extremities exam: Negative for: joint swelling, pedal edema, tenderness - Neurological Exam Neurological exam: Alert, Oriented x3 - Psychiatric Exam Psychiatric exam: Normal Affect, Normal Mood - Skin Skin Exam: Warm Results - Vital Signs Recent Vital Signs: Last Vital Signs Temp 97.9 F 12/23/17 08:00 Pulse 84 12/23/17 08:00 Resp 18 12/23/17 08:00 BP 97/58 L 12/23/17 08:00 Pulse Ox 95 12/23/17 08:00 - Labs Result Diagrams: 12/22/17 21:27 12/23/17 09:12 Labs: Laboratory Results - last 24 hr 12/22/17 12/22/17 12/22/17 21:27 21:27 21:27 WBC 6.2 RBC 2.75 L Hgb 9.8 L Hct 29.3 L MCV 106.7 H MCH 35.8 H MCHC 33.5 RDW 15.8 H Plt Count 168 MPV 8.4 Neut % (Auto) 55.6 Lymph % (Auto) 30.4 [place] % (Auto) 8.8 Eos % (Auto) 4.9 H Baso % (Auto) 0.3 Neut # (Auto) 3.4 Lymph # (Auto) 1.9 [place] # (Auto) 0.5 Eos # (Auto) 0.3 Baso # (Auto) 0.0 PT 12.2 INR 1.1 APTT 35.6 Sodium 145 Potassium 6.7 H* D Chloride 97 L Carbon Dioxide 24 Anion Gap 31 H BUN 83 H Creatinine 16.4 H* D Est GFR ( Amer) 4 Est GFR (Non-Af Amer) 3 POC Glucose (mg/dL) Random Glucose 81 Calcium 8.4 Total Bilirubin 0.9 AST 28 ALT 24 Alkaline Phosphatase 79 Total Protein 8.9 H Albumin 4.4 Globulin 4.5 H Albumin/Globulin Ratio 1.0 Alcohol, Quantitative < 10 Blood Type Blood Type Confirm Antibody Screen BBK History Checked 12/23/17 12/23/17 12/23/17 00:23 01:01 06:00 WBC RBC Hgb Hct MCV MCH MCHC RDW Plt Count MPV Neut % (Auto) Lymph % (Auto) [place] % (Auto) Eos % (Auto) Baso % (Auto) Neut # (Auto) Lymph # (Auto) [place] # (Auto) Eos # (Auto) Baso # (Auto) PT INR APTT Sodium Potassium Chloride Carbon Dioxide Anion Gap BUN Creatinine Est GFR ( Amer) Est GFR (Non-Af Amer) POC Glucose (mg/dL) 37 L* 141 H Random Glucose Calcium Total Bilirubin AST ALT Alkaline Phosphatase Total Protein Albumin Globulin Albumin/Globulin Ratio Alcohol, Quantitative Blood Type O POSITIVE Blood Type Confirm Antibody Screen Negative BBK History Checked No verified bt 12/23/17 07:20 WBC RBC Hgb Hct MCV MCH MCHC RDW Plt Count MPV Neut % (Auto) Lymph % (Auto) [place] % (Auto) Eos % (Auto) Baso % (Auto) Neut # (Auto) Lymph # (Auto) [place] # (Auto) Eos # (Auto) Baso # (Auto) PT INR APTT Sodium Potassium Chloride Carbon Dioxide Anion Gap BUN Creatinine Est GFR ( Amer) Est GFR (Non-Af Amer) POC Glucose (mg/dL) Random Glucose Calcium Total Bilirubin AST ALT Alkaline Phosphatase Total Protein Albumin Globulin Albumin/Globulin Ratio Alcohol, Quantitative Blood Type Blood Type Confirm O POSITIVE Antibody Screen BBK History Checked Assessment & Plan - Assessment and Plan (Free Text) Assessment: SHAYY on ESRD S/P Emergency HD BUN/Creat improved today Nephro consult appreciated. Will f/u recs Chronic abd pain/GI bleeding Opioid abuse poss dependency Similar symptoms last month was treated as gastroenteritis Patient requesting pain meds Unwitnessed upper/lower GI bleeding C/W Protonix GI consult appreciated CT abd and pelvis : Incidental findings unlikely related to clinical presentation: Please read report Supportive care <MoralesBeny Odalis - Last Filed: 12/24/17 11:04> Results - Vital Signs Recent Vital Signs: Last Vital Signs Temp 97.9 F 12/24/17 08:00 Pulse 88 12/24/17 08:49 Resp 20 12/24/17 08:00 BP 126/77 12/24/17 08:49 Pulse Ox 100 12/24/17 08:00 - Labs Result Diagrams: 12/22/17 21:27 12/23/17 09:12 Labs: Laboratory Results - last 24 hr 12/24/17 12/24/17 07:15 08:00 Amylase 114 H Lipase 80 Vitamin B12 645 Assessment & Plan - Assessment and Plan (Free Text) Assessment: Patient was personally seen and examined by me in rounds with residents. Available labs and diagnostic data reviewed. Case, patient's conditions and management plan discussed with residents in rounds. Agree with resident's progress note. Plan: As ordered.
[2017-12-23 09:38] LABS: CALCIUM 8.6 mg/dL (8.4-10.2)
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
--- NOTE | 2017-12-23 13:21 | CARD ---
APPROVED REPORT EKG Measurement Heart [id number] <Conclusion> Normal sinus rhythm Voltage criteria for left ventricular hypertrophy Prolonged QT Abnormal ECG
[2017-12-23] MEDS: HYDROmorphone 0.5 mg/0.5 ml ISec IVP PRN ×2 (17:11→21:19)
[2017-12-24] MEDS: HYDROmorphone 0.5 mg/0.5 ml ISec IVP PRN ×6 (01:32→22:36)
[2017-12-24 08:31] LABS: AMYLASE 114 U/L (30-110); LIPASE 80 U/L (23-300)
[2017-12-24] MEDS: Pantoprazole 40 mg EC Tab PO SCH (08:50)
[2017-12-24] MEDS: Multivitamin Vitamin B Complex (Nephro-Vite) Tab PO SCH (08:50)
--- NOTE | 2017-12-24 08:54 | PN ---
DATE: 12/24/2017 SUBJECTIVE: The patient is seen and examined. Interim events noted. Consults noted and appreciated. Gastroenterology and nephrology consult and intervention noted and appreciated. The patient remains in Progressive Care Unit on telemetry monitoring. Feels sick and complains of abdominal pain, although no active bleeding. No chest pain or shortness of breath. PHYSICAL EXAMINATION: GENERAL: The patient is in no acute distress. VITAL SIGNS: Stable. HEART: S1 and S2, normal and regular. LUNGS: Good bilateral air exchange. ABDOMEN: Soft and nontender. No organomegaly. No fluids. Bowel sounds are plus and normal. No sign of acute abdomen. No guarding, no rigidity, no rebound. EXTREMITIES: No edema, no calf swelling. No tenderness. No acute ischemia. INTELLIGENCE AGENT: Essentially unchanged. DIAGNOSTIC DATA: Available diagnostic data reviewed. Telemetry monitoring does not reveal any arrhythmias. PLAN: Overall, the patient's general medical condition is stable. Plan as ordered. Beny Morales MD
--- NOTE | 2017-12-24 14:26 | CP.PCM.PN ---
<KdYashira - Last Filed: 12/24/17 14:24> Subjective - Date & Time of Evaluation Date of Evaluation: 12/24/17 Time of Evaluation: 12:00 - Subjective Subjective: GI Fellow PGY 4 Progress Note Pt seen and evaluated at bedside, pt getting HD in room. Pt reports abdominal pain and nausea with eating but no vomiting and passing a lot of gas. ROS: A 12pt ROS was negative except as above. Objective - Vital Signs/Intake and Output Vital Signs (last 24 hours): Temp Pulse Resp BP Pulse Ox 97.8 F 86 19 111/78 100 12/24/17 12:29 12/24/17 12:29 12/24/17 12:29 12/24/17 12:29 12/24/17 12:29 - Medications Medications: Current Medications Calcitriol (Rocaltrol) 0.5 mcg PO TID [facility] Last Admin: 12/24/17 13:20 Dose: Not Given Calcium Carbonate (Oscal) 500 mg PO BID [facility] Last Admin: 12/24/17 08:50 Dose: 500 mg Cinacalcet (Sensipar) 30 mg PO DAILY [facility] Last Admin: 12/24/17 08:52 Dose: 30 mg Docusate Sodium (Colace) 100 mg PO TID [facility] Last Admin: 12/24/17 13:19 Dose: Not Given Hydromorphone HCl (Dilaudid) 0.5 mg IVP Q4H PRN PRN Reason: Pain, severe (8-10) Stop: 12/25/17 16:46 Last Admin: 12/24/17 13:49 Dose: 0.5 mg Metoclopramide HCl (Reglan) 10 mg PO [facility] Metoprolol Tartrate (Lopressor) 25 mg PO BID [facility] Last Admin: 12/24/17 08:49 Dose: Not Given Ondansetron HCl (Zofran Inj) 4 mg IVP Q6 PRN PRN Reason: Nausea/Vomiting Pantoprazole Sodium (Protonix Ec Tab) 40 mg PO ACB [facility] Last Admin: 12/24/17 08:50 Dose: 40 mg Vitamin B Complex/Vit C/Folic Acid (Nephro-Chey) 1 tab PO DAILY [facility] Last Admin: 12/24/17 08:50 Dose: 1 tab - Labs Labs: 12/22/17 21:27 12/23/17 09:12 PT 12.2 Seconds (9.8-13.1) 12/22/17 21:27 INR 1.1 (0.9-1.2) 12/22/17 21:27 APTT 35.6 Seconds (25.6-37.1) 12/22/17 21:27 - Constitutional Appears: Non-toxic, Toxic - Head Exam Head Exam: ATRAUMATIC, NORMAL INSPECTION, NORMOCEPHALIC - Eye Exam Eye Exam: EOMI, Normal appearance, PERRL - ENT Exam ENT Exam: Mucous Membranes Moist - Respiratory Exam Respiratory Exam: Clear to Ausculation Bilateral, NORMAL BREATHING PATTERN - Cardiovascular Exam Cardiovascular Exam: REGULAR RHYTHM - GI/Abdominal Exam GI & Abdominal Exam: Distended, Soft, Normal Bowel Sounds. absent: Tenderness - Neurological Exam Neurological Exam: Alert, Awake, Oriented x3 - Psychiatric Exam Psychiatric exam: Normal Affect, Normal Mood - Skin Skin Exam: Dry, Intact, Normal Color, Warm Assessment and Plan - Assessment and Plan (Free Text) Assessment: Patient is a 37yo male with PMHx significant for ESRD on HD 2/2 severe HTN, hyperparathyroidism s/p parathyroidectomy who presented to the ED with abdominal pain. 1. Abdominal pain 2. Diarrhea 3. Chronic macrocytic anemia 4. ESRD on HD Plan: -Continue supportive care with pain control -Anti-emetics reglan with meals fro possible gastroparesis -Anemia of chronic illness given ESRD on HD with need for epogen for several years -Chronic anemia stable and unchanged, at baseline since October 2017 -No overt blood loss noted since admission -Recent EGD/Colonoscopy performed at [facility] - no indication for urgent endoscopy/colonoscopy -Pantoprazole 40mg PO -Check stool culture, C diff (given HD pt), ova and parasites -H pylori stool ag -Supportive care -Diet as tolerated -Please call with any questions or concerns <Zuleima Tellez - Last Filed: 12/24/17 16:27> Objective - Vital Signs/Intake and Output Vital Signs (last 24 hours): Temp Pulse Resp BP Pulse Ox 97.6 F 84 16 102/59 L 100 12/24/17 16:07 12/24/17 16:07 12/24/17 16:07 12/24/17 16:07 12/24/17 16:07 - Medications Medications: Current Medications Calcitriol (Rocaltrol) 0.5 mcg PO TID [facility] Last Admin: 12/24/17 13:20 Dose: Not Given Calcium Carbonate (Oscal) 500 mg PO BID [facility] Last Admin: 12/24/17 08:50 Dose: 500 mg Cinacalcet (Sensipar) 30 mg PO DAILY [facility] Last Admin: 12/24/17 08:52 Dose: 30 mg Docusate Sodium (Colace) 100 mg PO TID [facility] Last Admin: 12/24/17 13:19 Dose: Not Given Hydromorphone HCl (Dilaudid) 0.5 mg IVP Q4H PRN PRN Reason: Pain, severe (8-10) Stop: 12/25/17 16:46 Last Admin: 12/24/17 13:49 Dose: 0.5 mg Metoclopramide HCl (Reglan) 10 mg PO [facility] Metoprolol Tartrate (Lopressor) 25 mg PO BID [facility] Last Admin: 12/24/17 08:49 Dose: Not Given Ondansetron HCl (Zofran Inj) 4 mg IVP Q6 PRN PRN Reason: Nausea/Vomiting Pantoprazole Sodium (Protonix Ec Tab) 40 mg PO ACB [facility] Last Admin: 12/24/17 08:50 Dose: 40 mg Vitamin B Complex/Vit C/Folic Acid (Nephro-Chey) 1 tab PO DAILY [facility] Last Admin: 12/24/17 08:50 Dose: 1 tab - Labs Labs: 12/22/17 21:27 12/23/17 09:12 PT 12.2 Seconds (9.8-13.1) 12/22/17 21:27 INR 1.1 (0.9-1.2) 12/22/17 21:27 APTT 35.6 Seconds (25.6-37.1) 12/22/17 21:27 Attending/Attestation - Attestation I have personally seen and examined this patient.: Yes I have fully participated in the care of the patient.: Yes I have reviewed all pertinent clinical information, including history, physical exam and plan: Yes Notes (Text): 12/24/17 16:16 Seen and examined with GI fellow at bedside. In a nutshell this is a 37 year old male with PMHx significant for ESRD on HD 2/2 severe HTN, hyperparathyroidism s/p parathyroidectomy who presented to the ED with abdominal pain and loose stools which has resolved now. Last colonoscopy a year ago with a polyp removed. Hb at baseline. Chronic macrocytic anemia. Getting HD today. Suspect component of anemia of chronic illness given ESRD on HD with need for epogen for several year. Consider checking B12/Folate and consider evaluation on peripheral smear - would defer to hematology evaluation if consulted. Recent EGD/Colonoscopy performed at [facility] - no indication for urgent endoscopy/colonoscopy at this juncture. Pantoprazole 40mg PO QAMAC is adequate - does not need IV. Diet as tolerated. Will sign off now. Thank you for letting us participate in the care of your patient
--- NOTE | 2017-12-24 17:35 | CP.PCM.PN ---
Subjective - Date & Time of Evaluation Date of Evaluation: 12/24/17 Time of Evaluation: 17:33 - Subjective Subjective: Nephrology Consultation Note Assessment: Stable abdomen pain Hypertensive Chronic Kidney Disease (I12.0) End stage renal disease (N18.6) dependence on hemodialysis (Z99.2) (TTS) via AVF Anemia (D64.9), Hyperphosphatemia (E83.39), Secondary Hyperparathyroidism (E21.1 ), HTN (I12.0) Plan: Will plan for HD today as ordered. Continue with Nephrovite 1 tab/day. PRBC as needed for anemia. add GERSON if Hb stays <10 Continue with phos binders Continue with calcitriol, sensipar BP control with meds as ordered. Patient not on RAAS jessica as, Consider if blood pressure stays high Glycemic control, Dialysis consistent diet Further work up/management as per primary team Dose meds/antibiotics (if needed) for ESRD status. Avoid fleets enema/magnesium based laxatives. GI evaluation noted Thanks for allowing me to participate in care of your patient. Will follow patient with you. Please call if any Qs Dr Al Weeks Office: [phone] Subjective: Noted events overnight. Patients feels okay. Denies chest pain, palpitation, shortness of breath, leg swelling. All other negative Physical Examination: General Appearance: Comfortable, in no acute respiratory distress, co-operative . Vitals reviewed and noted as below Head; Atraumatic, normocephalic ENT: no ulcers no thrush. Tongue is midline. Oropharynx: no rash or ulcers. EYES: Pupils are equal, round and reactive to light accommodation. Eye muscles and extraocular movement intact. Sclera is anicteric. Neck; supple no lymphadenopathy, no thyromegaly or bruit Lungs: Normal respiratory rate/effort. Breath sounds bilateral equal and clear Heart: Normal rate. s1s2 normal. No rub or gallop. Extremities: no edema. No varicose veins Neurological: Patient is alert, awake and oriented to person, place and time. No focal deficit. Strength bilateral appropriate and equal Skin: Warm and dry. Normal turgor. No rash. Palpitation: Normal elasticity for age Abdomen: Abdomen is soft. Bowel sounds +. There is no abdominal tenderness, no guarding/rigidity or organomegaly Psych: normal insight and normal affect/mood MSK: no joint tenderness or swelling. Digits and nails normal, no deformity : kidney or bladder not palpable Access: AVF Labs/imaging reviewed. Past medical history, past surgical history, family history, social history, allergy reviewed and noted as below Family Hx: no hx of CKD. Non contributory Objective - Vital Signs/Intake and Output Vital Signs (last 24 hours): Temp Pulse Resp BP Pulse Ox 97.6 F 84 16 102/59 L 100 12/24/17 16:07 12/24/17 16:07 12/24/17 16:07 12/24/17 16:07 12/24/17 16:07 - Medications Medications: Current Medications Calcitriol (Rocaltrol) 0.5 mcg PO TID [facility] Last Admin: 12/24/17 13:20 Dose: Not Given Calcium Carbonate (Oscal) 500 mg PO BID [facility] Last Admin: 12/24/17 08:50 Dose: 500 mg Cinacalcet (Sensipar) 30 mg PO DAILY [facility] Last Admin: 12/24/17 08:52 Dose: 30 mg Docusate Sodium (Colace) 100 mg PO TID [facility] Last Admin: 12/24/17 13:19 Dose: Not Given Hydromorphone HCl (Dilaudid) 0.5 mg IVP Q4H PRN PRN Reason: Pain, severe (8-10) Stop: 12/25/17 16:46 Last Admin: 12/24/17 13:49 Dose: 0.5 mg Metoclopramide HCl (Reglan) 10 mg PO [facility] Metoprolol Tartrate (Lopressor) 25 mg PO BID [facility] Last Admin: 12/24/17 08:49 Dose: Not Given Ondansetron HCl (Zofran Inj) 4 mg IVP Q6 PRN PRN Reason: Nausea/Vomiting Pantoprazole Sodium (Protonix Ec Tab) 40 mg PO ACB [facility] Last Admin: 12/24/17 08:50 Dose: 40 mg Vitamin B Complex/Vit C/Folic Acid (Nephro-Chey) 1 tab PO DAILY [facility] Last Admin: 12/24/17 08:50 Dose: 1 tab - Labs Labs: 12/22/17 21:27 12/23/17 09:12 PT 12.2 Seconds (9.8-13.1) 12/22/17 21:27 INR 1.1 (0.9-1.2) 12/22/17 21: APTT 35.6 Seconds (25.6-37.1) 12/22/17 21:27
[2017-12-25] MEDS: HYDROmorphone 0.5 mg/0.5 ml ISec IVP PRN ×3 (03:39→13:12)
[2017-12-25] MEDS: Pantoprazole 40 mg EC Tab PO SCH (06:35)
[2017-12-25 08:56] LABS: ALB/GLOB RATIO 0.9 (1.0-2.1); ALBUMIN 4.7 g/dL (3.5-5.0); CALCIUM 9.1 mg/dL (8.4-10.2)
[2017-12-25] MEDS: Multivitamin Vitamin B Complex (Nephro-Vite) Tab PO SCH (08:58)
--- NOTE | 2017-12-25 17:38 | CP.PCM.PN ---
Subjective - Date & Time of Evaluation Date of Evaluation: 12/25/17 Time of Evaluation: 17:37 - Subjective Subjective: Nephrology Consultation Note Assessment: Stable abdomen pain Hypertensive Chronic Kidney Disease (I12.0) End stage renal disease (N18.6) dependence on hemodialysis (Z99.2) (TTS) via AVF Anemia (D64.9), Hyperphosphatemia (E83.39), Secondary Hyperparathyroidism (E21.1 ), HTN (I12.0) Plan: Will plan for HD tuesday as ordered. Continue with Nephrovite 1 tab/day. PRBC as needed for anemia. add GERSON if Hb stays <10 Continue with phos binders Continue with calcitriol, sensipar BP control with meds as ordered. Patient not on RAAS jessica as, Consider if blood pressure stays high Glycemic control, Dialysis consistent diet Further work up/management as per primary team Dose meds/antibiotics (if needed) for ESRD status. Avoid fleets enema/magnesium based laxatives. GI evaluation noted Thanks for allowing me to participate in care of your patient. Will follow patient with you. Please call if any Qs Dr Al Weeks Office: [phone] Subjective: Noted events overnight. Patients feels okay. Denies chest pain, palpitation, shortness of breath, leg swelling. All other negative except abdomen pain Physical Examination: General Appearance: Comfortable, in no acute respiratory distress, co-operative . Vitals reviewed and noted as below Head; Atraumatic, normocephalic ENT: no ulcers no thrush. Tongue is midline. Oropharynx: no rash or ulcers. EYES: Pupils are equal, round and reactive to light accommodation. Eye muscles and extraocular movement intact. Sclera is anicteric. Neck; supple no lymphadenopathy, no thyromegaly or bruit Lungs: Normal respiratory rate/effort. Breath sounds bilateral equal and clear Heart: Normal rate. s1s2 normal. No rub or gallop. Extremities: no edema. No varicose veins Neurological: Patient is alert, awake and oriented to person, place and time. No focal deficit. Strength bilateral appropriate and equal Skin: Warm and dry. Normal turgor. No rash. Palpitation: Normal elasticity for age Abdomen: Abdomen is soft. Bowel sounds +. There is mild abdominal tenderness, no guarding/rigidity or organomegaly Psych: normal insight and normal affect/mood MSK: no joint tenderness or swelling. Digits and nails normal, no deformity : kidney or bladder not palpable Access: AVF Labs/imaging reviewed. Past medical history, past surgical history, family history, social history, allergy reviewed and noted as below Family Hx: no hx of CKD. Non contributory Objective - Vital Signs/Intake and Output Vital Signs (last 24 hours): Temp Pulse Resp BP Pulse Ox 98.5 F 101 H 20 95/63 L 100 12/25/17 16:00 12/25/17 17:31 12/25/17 16:00 12/25/17 17:31 12/25/17 16:00 Intake and Output: 12/25/17 12/25/17 06:59 18:59 Intake Total Balance - Medications Medications: Current Medications Calcitriol (Rocaltrol) 0.5 mcg PO TID [facility] Last Admin: 12/25/17 16:41 Dose: 0.5 mcg Calcium Carbonate (Oscal) 500 mg PO BID [facility] Last Admin: 12/25/17 16:42 Dose: 500 mg Cinacalcet (Sensipar) 30 mg PO DAILY [facility] Last Admin: 12/25/17 08:59 Dose: 30 mg Docusate Sodium (Colace) 100 mg PO TID [facility] Last Admin: 12/25/17 16:41 Dose: 100 mg Hydromorphone HCl (Dilaudid) 0.5 mg IVP Q4 PRN PRN Reason: Pain, severe (8-10) Last Admin: 12/25/17 17:30 Dose: 0.5 mg Metoclopramide HCl (Reglan) 10 mg PO ACHS [facility] Last Admin: 12/25/17 16:41 Dose: Not Given Metoprolol Tartrate (Lopressor) 25 mg PO BID [facility] Last Admin: 12/25/17 17:31 Dose: Not Given Ondansetron HCl (Zofran Inj) 4 mg IVP Q6 PRN PRN Reason: Nausea/Vomiting Pantoprazole Sodium (Protonix Ec Tab) 40 mg PO ACB [facility] Last Admin: 12/25/17 06:35 Dose: 40 mg Vitamin B Complex/Vit C/Folic Acid (Nephro-Chey) 1 tab PO DAILY [facility] Last Admin: 12/25/17 08:58 Dose: 1 tab - Labs Labs: 12/22/17 21:27 12/25/17 07:00 PT 12.2 Seconds (9.8-13.1) 12/22/17 21: INR 1.1 (0.9-1.2) 12/22/17 21: APTT 35.6 Seconds (25.6-37.1) 12/22/17 21:27
--- NOTE | 2017-12-25 23:49 | CP.PCM.PN ---
Subjective - Date & Time of Evaluation Date of Evaluation: 12/25/17 Time of Evaluation: 18:00 Objective - Vital Signs/Intake and Output Vital Signs (last 24 hours): Temp Pulse Resp BP Pulse Ox 98.5 F 101 H 20 95/63 L 100 12/25/17 16:00 12/25/17 17:31 12/25/17 16:00 12/25/17 17:31 12/25/17 16:00 - Medications Medications: Current Medications Calcitriol (Rocaltrol) 0.5 mcg PO TID [facility] Last Admin: 12/25/17 16:41 Dose: 0.5 mcg Calcium Carbonate (Oscal) 500 mg PO BID [facility] Last Admin: 12/25/17 16:42 Dose: 500 mg Cinacalcet (Sensipar) 30 mg PO DAILY [facility] Last Admin: 12/25/17 08:59 Dose: 30 mg Docusate Sodium (Colace) 100 mg PO TID [facility] Last Admin: 12/25/17 16:41 Dose: 100 mg Hydromorphone HCl (Dilaudid) 0.5 mg IVP Q4 PRN PRN Reason: Pain, severe (8-10) Last Admin: 12/25/17 21:55 Dose: 0.5 mg Metoclopramide HCl (Reglan) 10 mg PO ACHS [facility] Last Admin: 12/25/17 21:59 Dose: 10 mg Metoprolol Tartrate (Lopressor) 25 mg PO BID [facility] Last Admin: 12/25/17 17:31 Dose: Not Given Ondansetron HCl (Zofran Inj) 4 mg IVP Q6 PRN PRN Reason: Nausea/Vomiting Pantoprazole Sodium (Protonix Ec Tab) 40 mg PO ACB [facility] Last Admin: 12/25/17 06:35 Dose: 40 mg Vitamin B Complex/Vit C/Folic Acid (Nephro-Chey) 1 tab PO DAILY [facility] Last Admin: 12/25/17 08:58 Dose: 1 tab - Labs Labs: 12/22/17 21:27 12/25/17 07:00 PT 12.2 Seconds (9.8-13.1) 12/22/17 21:27 INR 1.1 (0.9-1.2) 12/22/17 21:27 APTT 35.6 Seconds (25.6-37.1) 12/22/17 21:27
[2017-12-26 06:07] LABS: HEMOGLOBIN 12.3 g/dL (12.0-18.0); MEAN CELL VOLUME 107.5 fl (80.0-94.0); MEAN CORPUSCULAR HEMOGLOBIN 36.5 pg (27.0-31.0); RBC 3.36 Mil/uL (4.40-5.90); RED CELL DISTRIBUTION WIDTH 16.1 % (11.5-14.5); WHITE BLOOD COUNT 6.7 K/uL (4.8-10.8)
[2017-12-26 06:58] LABS: CALCIUM 9.6 mg/dL (8.4-10.2)
[2017-12-26] MEDS: Pantoprazole 40 mg EC Tab PO SCH (08:58)
[2017-12-26] MEDS: Multivitamin Vitamin B Complex (Nephro-Vite) Tab PO SCH (08:58)
--- NOTE | 2017-12-26 11:07 | CP.PCM.PN ---
Subjective - Date & Time of Evaluation Date of Evaluation: 12/26/17 Time of Evaluation: 11:04 - Subjective Subjective: Patient M bed complaining of abdominal pain mostly in the right upper quadrant of the abdomen No nausea or vomiting The plan to order a stat ultrasound of the abdomen because he has been complaining since yesterday Objective - Vital Signs/Intake and Output Vital Signs (last 24 hours): Temp Pulse Resp BP Pulse Ox 98.2 F 89 18 121/85 100 12/26/17 06:34 12/26/17 08:59 12/26/17 06:34 12/26/17 08:59 12/26/17 06:34 - Medications Medications: Current Medications Calcitriol (Rocaltrol) 0.5 mcg PO TID [facility] Last Admin: 12/26/17 08:58 Dose: 0.5 mcg Calcium Carbonate (Oscal) 500 mg PO BID [facility] Last Admin: 12/26/17 08:59 Dose: 500 mg Cinacalcet (Sensipar) 30 mg PO DAILY [facility] Last Admin: 12/26/17 08:58 Dose: 30 mg Docusate Sodium (Colace) 100 mg PO TID [facility] Last Admin: 12/26/17 08:58 Dose: 100 mg Hydromorphone HCl (Dilaudid) 0.5 mg IVP Q4 PRN PRN Reason: Pain, severe (8-10) Last Admin: 12/26/17 10:32 Dose: 0.5 mg Metoclopramide HCl (Reglan) 10 mg PO ACHS [facility] Last Admin: 12/26/17 09:04 Dose: Not Given Metoprolol Tartrate (Lopressor) 25 mg PO BID [facility] Last Admin: 12/26/17 08:59 Dose: 25 mg Ondansetron HCl (Zofran Inj) 4 mg IVP Q6 PRN PRN Reason: Nausea/Vomiting Last Admin: 12/26/17 09:04 Dose: 4 mg Pantoprazole Sodium (Protonix Ec Tab) 40 mg PO ACB [facility] Last Admin: 12/26/17 08:58 Dose: 40 mg Vitamin B Complex/Vit C/Folic Acid (Nephro-Chey) 1 tab PO DAILY [facility] Last Admin: 12/26/17 08:58 Dose: 1 tab - Labs Labs: 12/26/17 04:20 12/26/17 04:20 PT 12.2 Seconds (9.8-13.1) 12/22/17 21:27 INR 1.1 (0.9-1.2) 12/22/17 21:27 APTT 35.6 Seconds (25.6-37.1) 12/22/17 21:27 - Constitutional Appears: No Acute Distress - ENT Exam ENT Exam: Mucous Membranes Moist - Neck Exam Neck Exam: absent: Lymphadenopathy - Respiratory Exam Respiratory Exam: NORMAL BREATHING PATTERN. absent: Chest Wall Tenderness, Rales, Respiratory Distress - Cardiovascular Exam Cardiovascular Exam: REGULAR RHYTHM, RRR. absent: JVD, Rubs - GI/Abdominal Exam GI & Abdominal Exam: Guarding, Tenderness, Normal Bowel Sounds Additional comments: Guarding and tenderness mainly in the right upper quadrant of the abdomen - Extremities Exam Extremities Exam: absent: Calf Tenderness - Back Exam Back Exam: absent: CVA tenderness (L), CVA tenderness (R) - Neurological Exam Neurological Exam: Alert - Psychiatric Exam Psychiatric exam: Anxious - Skin Skin Exam: absent: Cyanosis Assessment and Plan (1) End stage renal disease Assessment & Plan: #1 end stage renal disease on hemodialysis TTS scheduled for tomorrow. #2 patient complaining of upper abdomen mainly in the right upper quadrant of the abdomen the plan is stat ultrasound of the abdomen now. #3 hypertension which appears to be controlled. #4 hyperphosphatemia continue combined binders. #5 secondary hyperparathyroidism continue Sensipar #6 anemia continue EPO Status: Acute (2) Gastrointestinal hemorrhage Status: Acute (3) Hyperkalemia Status: Acute (4) Abdominal pain Status: Acute
[2017-12-26 17:42] LABS: FOLATE 14.7 ng/mL
--- NOTE | 2017-12-26 18:25 | US ---
HISTORY: abdominal pain COMPARISON: 11/11/2017 CT abdomen and pelvis is TECHNIQUE: Sonographic evaluation of the abdomen. FINDINGS: LIVER: Measures 14.3 cm. Patent portal vein. Portal venous flow: Hepatopetal. Unremarkable echogenicity of the liver parenchyma. No mass. No intrahepatic bile duct dilatation. GALLBLADDER: Unremarkable. No gallstones. COMMON BILE DUCT: Measures 3.0 mm. No stones. No dilatation. PANCREAS: Unremarkable as visualized. No mass. No ductal dilatation. RIGHT KIDNEY: Measures 5.6 x 10.3cm. Nephrocalcinosis better visualized on recent CT scan. LEFT KIDNEY: Measures 5.7 x 8.8cm. Nephrocalcinosis, better visualized on recent CT. SPLEEN: Normal in size and contour. No mass. AORTA: No aneurysmal dilatation. IVC: Unremarkable. OTHER FINDINGS: None. IMPRESSION: Evidence of nephrocalcinosis/ medullary sponge kidney. However the degree of acoustical shadowing by this process precludes more meaningful assessment. No acute findings apparent on the current study
--- NOTE | 2017-12-26 20:52 | CP.PCM.PN ---
Objective - Vital Signs/Intake and Output Vital Signs (last 24 hours): Temp Pulse Resp BP Pulse Ox 97.8 F 78 19 111/81 100 12/26/17 19:34 12/26/17 19:34 12/26/17 19:34 12/26/17 19:34 12/26/17 19:34 - Medications Medications: Current Medications Calcitriol (Rocaltrol) 0.5 mcg PO TID [facility] Last Admin: 12/26/17 18:50 Dose: 0.5 mcg Calcium Carbonate (Oscal) 500 mg PO BID [facility] Last Admin: 12/26/17 18:52 Dose: 500 mg Cinacalcet (Sensipar) 30 mg PO DAILY [facility] Last Admin: 12/26/17 08:58 Dose: 30 mg Docusate Sodium (Colace) 100 mg PO TID [facility] Last Admin: 12/26/17 18:51 Dose: 100 mg Hydromorphone HCl (Dilaudid) 0.5 mg IVP Q4 PRN PRN Reason: Pain, severe (8-10) Last Admin: 12/26/17 18:47 Dose: 0.5 mg Metoclopramide HCl (Reglan) 10 mg PO ACHS [facility] Last Admin: 12/26/17 18:52 Dose: Not Given Metoprolol Tartrate (Lopressor) 25 mg PO BID [facility] Last Admin: 12/26/17 18:51 Dose: 25 mg Ondansetron HCl (Zofran Inj) 4 mg IVP Q6 PRN PRN Reason: Nausea/Vomiting Last Admin: 12/26/17 09:04 Dose: 4 mg Pantoprazole Sodium (Protonix Ec Tab) 40 mg PO ACB [facility] Last Admin: 12/26/17 08:58 Dose: 40 mg Vitamin B Complex/Vit C/Folic Acid (Nephro-Chey) 1 tab PO DAILY [facility] Last Admin: 12/26/17 08:58 Dose: 1 tab - Labs Labs: 12/26/17 04:20 12/26/17 04:20 PT 12.2 Seconds (9.8-13.1) 12/22/17 21:27 INR 1.1 (0.9-1.2) 12/22/17 21:27 APTT 35.6 Seconds (25.6-37.1) 12/22/17 21:27 Assessment and Plan - Assessment and Plan (Free Text) Assessment: continue to complaint of non specific abdominal pain, spoke to pt will get a non contrast abd CT tomorrow after his HD, if negative, will discharge him from hospital, pt agreed with plan
--- NOTE | 2017-12-27 07:26 | PQF GENQUE ---
Dr. Morales, Etiology of the GI Bleeding? if known after the work up is completed OR: Unable to determine OR: Other explanation of clinical finding H/H:9.8/29.3->12.3/36.1 12/26 Abdomen US; Evidence of nephrocalcinosis/ medullary sponge kidney. However the degree of acoustical shadowing by this process precludes more meaningful assessment. No acute findings apparent on the current study H and P; H and P; SHAYY on ESRD S/P Emergency HD BUN/Creat improved today Nephro consult appreciated. Will f/u recs Chronic abd pain/GI bleeding Opioid abuse poss dependency Similar symptoms last month was treated as gastroenteritis Patient requesting pain meds Unwitnessed upper/lower GI bleeding C/W Protonix GI consult apprec CT abd and pelvis : Incidental findings unlikely related to clinipresentation GI consult: hx. significant for ESRD on HD 2/2 severe HTN, hyperparathyroidism s /p parathyroidectomy who presented to the ED with abdominal pain. -Abdominal pain -Acute diarrheal illness -Chronic macrocytic anemia -ESRD on HD, missed HD with volume overload -Hyperkalemia -Suspect component of anemia of chronic illness given ESRD on HD with need for epogen for several years -Macrocytosis present - check B12/Folate and consider evaluation on peripheral smear - would defer to hematology evalu if consulted -Chronic anemia stable and unchanged, at baseline since October 2017 -No overt blood loss noted since admission -Recent EGD/Colonoscopy performed at [facility] - no indication for urgent endoscopy/colonoscopy at this juncture -Pantoprazole 40mg PO QAMAC is adequate - does not need IV -Check stool culture, C diff (given HD pt), ova and parasites -H pylori stool ag -Supportive care This form is a permanent part of the medical record Clarification of your documentation is requested to better reflect the severity of illness and intensity of treatment of your patient. Indicators present [] Specify: [] [] Specify: [] [] Specify: [] [] Specify: [] Location in the medical record that reflects the above clinical findings: [] Treatment Provided: [] PHYSICIAN'S RESPONSE Based on your medical judgment of the clinical indicators outlined above please clarify the following: [] Practitioner response [] If unable to determine, please check the box, sign and date. Present On Admission (POA) Indicator: [] Present at the time of admission [] Not present at the time of admission [] Clinically Undetermined In responding to this query, please exercise your independent professional judgment. The fact that a question is asked does not imply that any particular answer is desired or expected. Thank you for your clarification on this documentation. If you have any questions please call. * Thank you, Geneva Sandoval RN ext. #[phone] MTDD
[2017-12-27] MEDS: Multivitamin Vitamin B Complex (Nephro-Vite) Tab PO SCH (09:12)
--- NOTE | 2017-12-27 12:05 | CP.PCM.PN ---
Subjective - Date & Time of Evaluation Date of Evaluation: 12/27/17 Time of Evaluation: 12:02 - Subjective Subjective: Patient in bed although he complained of less abdominal pain mostly in the right upper quadrant No nausea or vomiting There is shortness of breath and feeling much better Objective - Vital Signs/Intake and Output Vital Signs (last 24 hours): Temp Pulse Resp BP Pulse Ox 97.2 F L 82 18 102/67 97 12/27/17 11:52 12/27/17 11:52 12/27/17 11:52 12/27/17 11:52 12/27/17 11:52 - Medications Medications: Current Medications Calcitriol (Rocaltrol) 0.5 mcg PO TID [facility] Last Admin: 12/27/17 09:11 Dose: 0.5 mcg Calcium Carbonate (Oscal) 500 mg PO BID [facility] Last Admin: 12/27/17 09:12 Dose: 500 mg Cinacalcet (Sensipar) 30 mg PO DAILY [facility] Last Admin: 12/27/17 09:13 Dose: 30 mg Docusate Sodium (Colace) 100 mg PO TID [facility] Last Admin: 12/27/17 09:11 Dose: 100 mg Famotidine (Pepcid) 20 mg PO BID [facility] Last Admin: 12/27/17 09:12 Dose: 20 mg Hydromorphone HCl (Dilaudid) 0.5 mg IVP Q4 PRN PRN Reason: Pain, severe (8-10) Last Admin: 12/27/17 10:25 Dose: 0.5 mg Metoclopramide HCl (Reglan) 10 mg PO ACHS [facility] Last Admin: 12/27/17 09:12 Dose: Not Given Metoprolol Tartrate (Lopressor) 25 mg PO BID [facility] Last Admin: 12/27/17 09:11 Dose: 25 mg Ondansetron HCl (Zofran Inj) 4 mg IVP Q6 PRN PRN Reason: Nausea/Vomiting Last Admin: 12/26/17 09:04 Dose: 4 mg Vitamin B Complex/Vit C/Folic Acid (Nephro-Chey) 1 tab PO DAILY [facility] Last Admin: 12/27/17 09:12 Dose: 1 tab - Labs Labs: 12/26/17 04:20 12/26/17 04:20 PT 12.2 Seconds (9.8-13.1) 12/22/17 21:27 INR 1.1 (0.9-1.2) 12/22/17 21:27 APTT 35.6 Seconds (25.6-37.1) 12/22/17 21:27 - Constitutional Appears: No Acute Distress - ENT Exam ENT Exam: Mucous Membranes Moist - Neck Exam Neck Exam: absent: Lymphadenopathy - Respiratory Exam Respiratory Exam: NORMAL BREATHING PATTERN. absent: Chest Wall Tenderness, Rhonchi - GI/Abdominal Exam GI & Abdominal Exam: Soft, Normal Bowel Sounds - Extremities Exam Extremities Exam: absent: Calf Tenderness - Back Exam Back Exam: absent: CVA tenderness (L), CVA tenderness (R) - Neurological Exam Neurological Exam: Alert - Psychiatric Exam Psychiatric exam: Anxious, Normal Affect - Skin Skin Exam: absent: Cyanosis Assessment and Plan (1) End stage renal disease Assessment & Plan: End stage renal disease patient about to have dialysis now With sodium bath 138 Potassium bath 2 mEq Bicarbonate 34 Ultrafiltration 1500 mL Ultrasound of the abdomen noted Patient scheduled to have CT scan of the abdomen because of the persistent of abdominal pain Status: Acute (2) Gastrointestinal hemorrhage Status: Acute (3) Hyperkalemia Status: Acute (4) Abdominal pain Status: Acute
--- NOTE | 2017-12-27 14:41 | CT ---
PROCEDURE: CT Abdomen without intravenous contrast HISTORY: Abdominal pain COMPARISON: CT scan of the abdomen pelvis dated 11/11/2017. TECHNIQUE: Contiguous images were obtained from the domes of the diaphragms to the aortic bifurcation without the administration of intravenous contrast. Oral contrast was not administered. Radiation dose: Total exam DLP = 273 mGy-cm. This CT exam was performed using one or more of the following dose reduction techniques: Automated exposure control, adjustment of the mA and/or kV according to patient size, and/or use of iterative reconstruction technique. FINDINGS: LOWER THORAX: Bibasilar atelectasis. Cardiomegaly. Coronary arterial calcifications. LIVER: Unremarkable. No gross lesion or ductal dilatation. GALLBLADDER AND BILE DUCTS: Unremarkable. PANCREAS: Unremarkable. No gross lesion or ductal dilatation. SPLEEN: Unremarkable. ADRENALS: Unremarkable. No mass. KIDNEYS AND URETERS: Stable appearance. Bilateral medullary nephrocalcinosis. Cortical thinning. Bilateral renal cysts. No hydronephrosis. VASCULATURE: Atherosclerotic calcifications. No aortic aneurysm. BOWEL: Unremarkable. No obstruction. No gross mural thickening. PERITONEUM: Right periumbilical fat containing hernia. No free fluid. No free air. LYMPH NODES: Unremarkable. No enlarged lymph nodes. BONES: Severe osteopenia/ osteoporosis and changes from renal osteodystrophy. OTHER FINDINGS: None. IMPRESSION: No acute abdominal pelvic pathology. Stable findings as above.
[2017-12-27] MEDS: HYDROmorphone 0.5 mg/0.5 ml ISec IVP PRN ×3 (14:46→22:59)
--- NOTE | 2017-12-27 21:40 | CP.PCM.PN ---
Objective - Vital Signs/Intake and Output Vital Signs (last 24 hours): Temp Pulse Resp BP Pulse Ox 98.1 F 101 H 20 109/74 97 12/27/17 19:39 12/27/17 21:00 12/27/17 19:39 12/27/17 19:39 12/27/17 19:39 - Medications Medications: Current Medications Calcitriol (Rocaltrol) 0.5 mcg PO TID [facility] Last Admin: 12/27/17 18:15 Dose: Not Given Calcium Carbonate (Oscal) 500 mg PO BID [facility] Last Admin: 12/27/17 18:15 Dose: Not Given Cinacalcet (Sensipar) 30 mg PO DAILY [facility] Last Admin: 12/27/17 09:13 Dose: 30 mg Docusate Sodium (Colace) 100 mg PO TID [facility] Last Admin: 12/27/17 18:15 Dose: Not Given Famotidine (Pepcid) 20 mg PO BID [facility] Last Admin: 12/27/17 18:15 Dose: Not Given Hydromorphone HCl (Dilaudid) 0.5 mg IVP Q4 PRN PRN Reason: Pain, severe (8-10) Last Admin: 12/27/17 19:05 Dose: 0.5 mg Metoclopramide HCl (Reglan) 10 mg PO ACHS [facility] Last Admin: 12/27/17 18:15 Dose: Not Given Metoprolol Tartrate (Lopressor) 25 mg PO BID [facility] Last Admin: 12/27/17 18:15 Dose: Not Given Ondansetron HCl (Zofran Inj) 4 mg IVP Q6 PRN PRN Reason: Nausea/Vomiting Last Admin: 12/26/17 09:04 Dose: 4 mg Vitamin B Complex/Vit C/Folic Acid (Nephro-Chey) 1 tab PO DAILY [facility] Last Admin: 12/27/17 09:12 Dose: 1 tab - Labs Labs: 12/26/17 04:20 12/26/17 04:20 PT 12.2 Seconds (9.8-13.1) 12/22/17 21:27 INR 1.1 (0.9-1.2) 12/22/17 21:27 APTT 35.6 Seconds (25.6-37.1) 12/22/17 21:27
[2017-12-28] MEDS: HYDROmorphone 0.5 mg/0.5 ml ISec IVP PRN ×3 (02:56→11:03)
[2017-12-28 05:37] VITALS: RESP 18
[2017-12-28 08:20] VITALS: O2SAT 100
[2017-12-28] MEDS: Multivitamin Vitamin B Complex (Nephro-Vite) Tab PO SCH (08:58)
[2017-12-28 11:58] VITALS: BP 99/68; PULSE 83; TEMP 97.3
--- NOTE | 2017-12-28 12:47 | CP.PCM.PN ---
Subjective - Date & Time of Evaluation Date of Evaluation: 12/28/17 Time of Evaluation: 12:45 - Subjective Subjective: Patient M bed. Appeared to be comfortable Still complaining of some vague pain in the right upper quadrant No nausea or vomiting Diarrhea no chest pain Objective - Vital Signs/Intake and Output Vital Signs (last 24 hours): Temp Pulse Resp BP Pulse Ox 97.3 F L 83 18 99/68 L 100 12/28/17 11:58 12/28/17 11:58 12/28/17 11:58 12/28/17 11:58 12/28/17 11:58 - Medications Medications: Current Medications Calcitriol (Rocaltrol) 0.5 mcg PO TID [facility] Last Admin: 12/28/17 08:59 Dose: 0.5 mcg Calcium Carbonate (Oscal) 500 mg PO BID [facility] Last Admin: 12/28/17 08:59 Dose: 500 mg Cinacalcet (Sensipar) 30 mg PO DAILY [facility] Last Admin: 12/28/17 08:59 Dose: 30 mg Docusate Sodium (Colace) 100 mg PO TID [facility] Last Admin: 12/28/17 08:57 Dose: 100 mg Famotidine (Pepcid) 20 mg PO BID [facility] Last Admin: 12/28/17 08:59 Dose: 20 mg Hydromorphone HCl (Dilaudid) 0.5 mg IVP Q4 PRN PRN Reason: Pain, severe (8-10) Last Admin: 12/28/17 11:03 Dose: 0.5 mg Metoclopramide HCl (Reglan) 10 mg PO ACHS [facility] Last Admin: 12/28/17 11:05 Dose: 10 mg Metoprolol Tartrate (Lopressor) 25 mg PO BID [facility] Last Admin: 12/28/17 09:02 Dose: Not Given Ondansetron HCl (Zofran Inj) 4 mg IVP Q6 PRN PRN Reason: Nausea/Vomiting Last Admin: 12/26/17 09:04 Dose: 4 mg Vitamin B Complex/Vit C/Folic Acid (Nephro-Chey) 1 tab PO DAILY [facility] Last Admin: 12/28/17 08:58 Dose: 1 tab - Labs Labs: 12/26/17 04:20 12/26/17 04:20 PT 12.2 Seconds (9.8-13.1) 12/22/17 21:27 INR 1.1 (0.9-1.2) 12/22/17 21:27 APTT 35.6 Seconds (25.6-37.1) 12/22/17 21:27 - Constitutional Appears: No Acute Distress - ENT Exam ENT Exam: Mucous Membranes Moist - Neck Exam Neck Exam: absent: Lymphadenopathy - Respiratory Exam Respiratory Exam: NORMAL BREATHING PATTERN. absent: Chest Wall Tenderness - Cardiovascular Exam Cardiovascular Exam: absent: Gallop, JVD, Rubs - GI/Abdominal Exam GI & Abdominal Exam: Soft, Normal Bowel Sounds - Extremities Exam Extremities Exam: absent: Calf Tenderness - Back Exam Back Exam: absent: CVA tenderness (L), CVA tenderness (R) - Neurological Exam Neurological Exam: Alert - Psychiatric Exam Psychiatric exam: Normal Affect - Skin Skin Exam: absent: Cyanosis Assessment and Plan (1) End stage renal disease Assessment & Plan: End stage renal disease on maintenance hemodialysis completed dialysis yesterday Patient was admitted with volume overloaded which has been resolved Plan complaining of some right upper quadrant pain intermittently CAT scan showed bilateral medullary nephrocalcinosis of the kidney Patient may need to have right rib series he could have it as outpatient and he was instructed to see his c t tech and primary care physician as outpatient for follow-up Status: Acute (2) Gastrointestinal hemorrhage Status: Acute (3) Hyperkalemia Status: Acute (4) Abdominal pain Status: Acute
== END 2017-12-28 13:16 | disposition home or self-care (01) | DRG 377 ==
LOC: H.ER 19:55 → H.ERHOLD 22:15 → H.TEL 12-23 01:48
PROVIDERS: ADMIT Internal Medicine; ATTEND Internal Medicine
PROC: 5A1D70Z Performance of Urinary Filtration, Intermittent, Less than 6 Hours Per Day (ICD-10-PCS; principal; 2017-12-24)
DX: K92.2 Gastrointestinal hemorrhage, unspecified (principal); N18.6 End stage renal disease; N17.9 Acute kidney failure, unspecified; E87.5 Hyperkalemia; I12.0 Hypertensive chronic kidney disease with stage 5 chronic kidney disease or end stage renal disease; E83.59 Other disorders of calcium metabolism; N25.81 Secondary hyperparathyroidism of renal origin; E87.70 Fluid overload, unspecified; E78.00 Pure hypercholesterolemia, unspecified; Z96.653 Presence of artificial knee joint, bilateral; Z99.2 Dependence on renal dialysis; Z91.013 Allergy to seafood; D53.9 Nutritional anemia, unspecified; D75.89 Other specified diseases of blood and blood-forming organs; D63.1 Anemia in chronic kidney disease; R10.11 Right upper quadrant pain; N29 Other disorders of kidney and ureter in diseases classified elsewhere; F11.10 Opioid abuse, uncomplicated

== ENCOUNTER 2018-01-05 22:31 | Inpatient (IN) | payer MEDICARE, MEDICAID ==
[2018-01-06 00:13] LABS: BASO # 0.1 K/uL (0.0-0.2); BASO % 1.2 % (0.0-2.0); EOS # 0.4 K/uL (0.0-0.7); EOS % 7.5 % (0.0-4.0); HEMOGLOBIN 10.4 g/dL (12.0-18.0); MEAN CELL VOLUME 106.1 fl (80.0-94.0); MEAN PLATELET VOLUME 8.6 fl (7.2-11.7); MONO # 0.6 K/uL (0.0-0.8); MONO % 10.9 % (0.0-10.0); NEUT # 2.7 K/uL (1.8-7.0); NEUT % 46.4 % (50.0-75.0); NRBC % 0.1 % (0.0-0.0); RBC 2.96 Mil/uL (4.40-5.90); RED CELL DISTRIBUTION WIDTH 15.2 % (11.5-14.5); WHITE BLOOD COUNT 5.8 K/uL (4.8-10.8)
[2018-01-06 00:33] LABS: ALB/GLOB RATIO 0.9 (1.0-2.1); ALBUMIN 4.4 g/dL (3.5-5.0); CALCIUM 9.5 mg/dL (8.4-10.2)
[2018-01-06] MEDS ORDERED: Dextrose 50% SYRINGE Inj (50 ml) IVP ONE ×2 (00:34→03:48)
[2018-01-06] MEDS ORDERED: Sodium Bicarbonate 7.5% (0.9 MEQ/ML) 50ML INJ IV ONE (00:34)
[2018-01-06] MEDS ORDERED: Insulin Regular 100 units/ml IV ONE (00:34)
[2018-01-06 00:35] LABS: INR 1.1 (0.9-1.2); PARTIAL THROMBOPLASTIN TIME 33.6 Seconds (25.6-37.1); PROTHROMBIN TIME 12.7 Seconds (9.8-13.1)
[2018-01-06] MEDS ORDERED: Sod Polystyrene Sulf 15 gm/60 ml Susp PO STA (01:55)
--- NOTE | 2018-01-06 01:56 | ED PDOC ---
HPI: Abdomen Time Seen by Provider: 01/05/18 22:45 Chief Complaint (Nursing): Abdominal Pain Chief Complaint (Provider): Vomiting History Per: Patient History/Exam Limitations: clinical condition Onset/Duration Of Symptoms: Hrs Location Of Pain/Discomfort: Epigastric Quality Of Discomfort: "Pain" Associated Symptoms: Nausea, Vomiting Additional Complaint(s): 37 y/o male with a history of end stage renal disease (non- compliant with hemodialysis) presents to the ED with complaints of vomiting. Patient is well known to provider and presented to ED two weeks ago for a similar presentation including abdominal pain and x4 hematemesis episodes at the time. Patient admits to missing his hemodialysis treatment today. Patient reports he has abdominal pain and diarrhea. Of note, patient was supposed to stay for an endoscopy after admission two weeks ago but left due to nervousness about having procedure. Past Medical History Vital Signs: Last Vital Signs Temp 98.0 F 01/06/18 16:34 Pulse 84 01/06/18 16:46 Resp 18 01/06/18 16:34 BP 92/59 L 01/06/18 16:46 Pulse Ox 99 01/06/18 20:53 - Medical History PMH: Anemia, HTN, Hypercholesterolemia, Hyperthyroidism, Peripheral Edema, End Stage Renal Disease (dialysis T//Tue), Chronic Kidney Disease Denies: HIV - Family History Family History: States: Unknown Family Hx - Social History Current smoker - smoking cessation education provided: No Ex-Smoker (has not smoked in the last 12 months): No Alcohol: None Drugs: Denies - Immunization History Hx Tetanus Toxoid Vaccination: No Hx Influenza Vaccination: Yes Hx Pneumococcal Vaccination: Yes - Home Medications Home Medications: Ambulatory Orders Medication Instructions Recorded Calcitriol 0.5 mcg PO TID 06/05/17 Docusate [Colace] 100 mg PO TID 06/05/17 HYDROmorphone [Dilaudid] 2 mg PO Q6 06/05/17 Simvastatin 10 mg PO HS 12/10/17 B Complex W-C No.20/Folic Acid 1 mg PO DAILY 12/23/17 [Nephrocaps Softgel] Calcium Carbonate [Oscal] 1 tab PO BID 12/23/17 Cinacalcet [Sensipar] 30 mg PO DAILY 12/23/17 Metoprolol Tartrate [Lopressor] 25 mg PO BID 12/23/17 Psyllium Husk/Aspartame [Metamucil 1 packet PO DAILY 12/23/17 Sugar-Free Powder] Ranitidine HCl [Heartburn Relief] 150 mg PO BID 12/23/17 - Allergies Allergies/Adverse Reactions: Allergies Allergy/AdvReac Type Severity Reaction Status Date / Time shellfish derived Allergy ANAPHYLAXIS Verified 01/05/18 22:40 Review of Systems ROS Statement: Except As Marked, All Systems Reviewed And Found Negative Gastrointestinal: Positive for: Vomiting, Abdominal Pain, Diarrhea, Hematemesis Physical Exam - Reviewed Vital Signs Reviewed: Yes - Physical Exam Appears: Positive for: No Acute Distress Head Exam: Positive for: ATRAUMATIC Skin: Positive for: Normal Color Eye Exam: Positive for: EOMI, Normal appearance, PERRL ENT: Positive for: Normal ENT Inspection Neck: Positive for: Normal, Painless ROM Cardiovascular/Chest: Positive for: Regular Rate, Rhythm Respiratory: Positive for: CNT, Normal Breath Sounds Gastrointestinal/Abdominal: Positive for: Tenderness (epigastric) Extremity: Positive for: Normal ROM Neurologic/Psych: Positive for: Alert, Oriented - Laboratory Results Result Diagrams: 01/06/18 00:08 01/06/18 00:08 - ECG O2 Sat by Pulse Oximetry: 99 - Critical Care Total Time (In Min): 60 Medical Decision Making Medical Decision Makin:45 Initial Impression: epigastric pain and hematemesis in setting of known gastritis and history of renal failure and hemodialysis Initial Plan: * Labs * EKG * Dextrose 50 ml IVP * Insulin 10 units IV * Morphine 2 mg IVP * Zofran 4 mg IV * Protonix 80 mg IV * Sodium Bicarbonate 44.6 IV * Accucheck * Sodium Polystyrene Sulfonate 30 gm PO * UDip 0156 Labs reviewed: marked hyperkalemia as well as derangement in kidney function. IV insulin, D50, sodium bicarbonate, and PO Kayexalate for emergent mangemnt of hyperkalemia. Discussed case with Dr. Cazares who agrees with management plan. Asks for emergent dialysis. 0200 Discussed case with Loly of the dialysis center. States that she would like to be informed when the patient has a bed. [address] 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 Dx: hyperkalemia, GI bleed, end stage renal disease, on dialysis 0345 Patient noted to be obtunded and altered. Accucheck: 34 1 amp of D50 administered. Recovery of mentation achieved. Mobile dialysis notified about patient receiving a bed. Scribe Attestation: Documented by Bang Pa and Emily Marroquin acting as a scribe Howard Coleman MD. Scribanatoly Attestation: All medical record entries made by the Scribe were at my direction and personally dictated by me. I have reviewed the chart and agree that the record accurately reflects my personal performance of the history, physical exam, medical decision making, and the department course for this patient. I have also personally directed, reviewed, and agree with the discharge instructions and disposition. Disposition - Clinical Impression Clinical Impression: ESRD on hemodialysis, Hyperkalemia, Gastrointestinal hemorrhage - Disposition Disposition Time: 01:00 Condition: FAIR - Pt Status Changed To: Hospital Disposition Of: Inpatient - Admit Certification Admit to Inpatient:: After my assessment, the patient will require hospitalization for at least two midnights. This is because of the severity of symptoms shown, intensity of services needed, and/or the medical risk in this patient being treated as an outpatient.
[2018-01-06] MEDS ORDERED: Insulin Regular 100 units/ml ONE (02:01)
[2018-01-06] MEDS ORDERED: Sod Polystyrene Sulf 15 gm/60 ml Susp ONE (02:02)
[2018-01-06] MEDS ORDERED: Dextrose 50% SYRINGE Inj (50 ml) ONE ×2 (02:11→03:46)
[2018-01-06] MEDS: Pantoprazole 40 MG in Sodium Chloride 0.9% 100 ML IV SCH ×2 (05:35→08:46)
[2018-01-06] MEDS ORDERED: HYDROmorphone 0.5 mg/0.5 ml ISec IVP PRN (06:09)
--- NOTE | 2018-01-06 07:34 | CP.PCM.HP ---
History of Present Illness - History of Present Illness History of Present Illness: patient evaluated with Dr Morales during rounds 37 y/o M, Hx of ESRD, HTN on HD, presented to ER [facility], c/o abdominal pain. Pt was c/o of generalized abdominal pain, moderate intensity, associated with bloating, and gas. He says yesterday the pain prevented him from going to dialysis then he got more sick. He started having N/V x 2-3 with slight blood tinge.. Patient was admitted to hosp for similar complains last month and 2 months ago. Patient takes dilaudid PO at home for "chronic pain". States he missed only 1 HD session Yesterday. Pt denied: Syncope, dizziness, CP, palpitations, SOB, cough, urinary symptoms, recent travel out [place]. At ED he was found to be hyperkalemic and BUN creat was very elevated. PMHx: HTN, ESRD on HD PSHx: Multiple abdominal procedures to adjust or replace PD catheter prior to insertion of permacath and conversion to HD, left AV fistula for HD, B/L knee replacement FHx: Significant for ESRD, HTN Social: Denies tobacco, EtOH or illicit drug use 12 system ROS performed and negative except where stated. Present on Admission - Present on Admission Any Indicators Present on Admission: No Past Patient History - Infectious Disease Hx of Infectious Diseases: None - Past Medical History & Family History Past Medical History?: Yes - Past Social History Smoking Status: Never Smoked - CARDIAC Hx Cardiac Disorders: Yes Hx Hypercholesterolemia: Yes Hx Hypertension: Yes Hx Peripheral Edema: Yes - PULMONARY Hx Respiratory Disorders: No - NEUROLOGICAL Hx Neurological Disorder: No - HEENT Hx HEENT Problems: No - RENAL Hx Chronic Kidney Disease: Yes Hx Dialysis: Yes Type of Dialysis Access: left av shunt Date of Last Dialysis Treatment: 01/03/18 Hx Kidney Stones: No Hx Neurogenic Bladder: No Hx Pyelonephritis: No Hx Renal (Kidney) Cancer: No Hx Renal Failure: Yes - ENDOCRINE/METABOLIC Hx Endocrine Disorders: Yes Hx Hyperthyroidism: Yes - HEMATOLOGICAL/ONCOLOGICAL Hx Blood Disorders: Yes Hx Anemia: Yes Hx Human Immunodeficiency Virus (HIV): No - INTEGUMENTARY Hx Dermatological Problems: No - MUSCULOSKELETAL/RHEUMATOLOGICAL Hx Musculoskeletal Disorders: No Hx Falls: No - GASTROINTESTINAL Hx Gastrointestinal Disorders: No - GENITOURINARY/GYNECOLOGICAL Hx Genitourinary Disorders: No - PSYCHIATRIC Hx Psychophysiologic Disorder: No Hx Substance Use: No - SURGICAL HISTORY Hx Surgeries: Yes Hx Arteriovenous Shunt: Yes Hx Joint Replacement: Yes Other/Comment: bilateral knee replacement, left arm shunt, Permacath, back sx. - ANESTHESIA Hx Anesthesia: Yes Hx Anesthesia Reactions: No Hx Malignant Hyperthermia: No Has any member of the family had a problem w/ anesthesia?: No Meds Allergies/Adverse Reactions: Allergies Allergy/AdvReac Type Severity Reaction Status Date / Time shellfish derived Allergy ANAPHYLAXIS Verified 01/05/18 22:40 Physical Exam - Constitutional Appears: Non-toxic, No Acute Distress - Eye Exam Eye Exam: EOMI, PERRL - ENT Exam ENT Exam: Mucous Membranes Moist - Respiratory Exam Respiratory Exam: Clear to Auscultation Bilateral, NORMAL BREATHING PATTERN. absent: Chest Wall Tenderness, Decreased Breath Sounds, Prolonged Expiratory Phase, Rales, Respiratory Distress - Cardiovascular Exam Cardiovascular Exam: REGULAR RHYTHM, +S1, +S2. absent: Gallop - GI/Abdominal Exam GI & Abdominal Exam: Guarding (Mild, questionable), Normal Bowel Sounds, Soft, Tenderness (Diffuse). absent: Diminished Bowel Sounds, Distended, Firm, Rebound , Rigid - Extremities Exam Extremities exam: Positive for: normal capillary refill, pedal pulses present. Negative for: calf tenderness, pedal edema, tenderness Additional comments: Hyperthrophic toenails - Neurological Exam Neurological exam: Alert, Oriented x3 - Psychiatric Exam Psychiatric exam: Flat Affect - Skin Skin Exam: Normal Color, Warm Results - Vital Signs Recent Vital Signs: Last Vital Signs Temp 97.3 F L 01/06/18 05:00 Pulse 82 01/06/18 05:00 Resp 18 01/06/18 05:00 BP 104/70 01/06/18 05:00 Pulse Ox 96 01/06/18 05:00 - Labs Result Diagrams: 01/06/18 00:08 01/06/18 00:08 Labs: Laboratory Results - last 24 hr 01/05/18 01/06/18 01/06/18 23:42 00:08 00:08 WBC 5.8 RBC 2.96 L Hgb 10.4 L Hct 31.4 L MCV 106.1 H MCH 35.0 H MCHC 33.0 RDW 15.2 H Plt Count 134 MPV 8.6 Neut % (Auto) 46.4 L Lymph % (Auto) 34.0 Gentry % (Auto) 10.9 H Eos % (Auto) 7.5 H Baso % (Auto) 1.2 Neut # (Auto) 2.7 Lymph # (Auto) 2.0 Gentry # (Auto) 0.6 Eos # (Auto) 0.4 Baso # (Auto) 0.1 PT INR APTT Sodium 145 Potassium 6.7 H* D Chloride 92 L Carbon Dioxide 33 H Anion Gap 27 H BUN 54 H Creatinine 15.7 H* D Est GFR ( Amer) 4 Est GFR (Non-Af Amer) 4 POC Glucose (mg/dL) 73 Random Glucose 86 Calcium 9.5 Total Bilirubin 1.1 AST 25 ALT 20 L Alkaline Phosphatase 84 Total Protein 9.2 H Albumin 4.4 Globulin 4.7 H Albumin/Globulin Ratio 0.9 L Lipase 78 01/06/18 01/06/18 01/06/18 00:08 03:44 04:18 WBC RBC Hgb Hct MCV MCH MCHC RDW Plt Count MPV Neut % (Auto) Lymph % (Auto) Gentry % (Auto) Eos % (Auto) Baso % (Auto) Neut # (Auto) Lymph # (Auto) Gentry # (Auto) Eos # (Auto) Baso # (Auto) PT 12.7 INR 1.1 APTT 33.6 Sodium Potassium Chloride Carbon Dioxide Anion Gap BUN Creatinine Est GFR ( Amer) Est GFR (Non-Af Amer) POC Glucose (mg/dL) 34 L* 185 H Random Glucose Calcium Total Bilirubin AST ALT Alkaline Phosphatase Total Protein Albumin Globulin Albumin/Globulin Ratio Lipase Assessment & Plan - Assessment and Plan (Free Text) Assessment: SHAYY on ESRD patient with hyperkalemia Missed 1 HD as per patient BUN/Creat very elevated Nephro consult appreciated For HD today Opioid abuse/dependance On Opiods as outpatient 3rd admission in 3 months with similar complains of abd pain refusing PPI drip today abd pain/Questionable GI bleed GI consult appreciated FOBT Refusing PPI drip will start on Protonix IVP daily C/W Pepcid No white count and Hgb is at baseline
--- NOTE | 2018-01-06 08:10 | CP.PCM.CON ---
History of Present Illness - History of Present Illness History of Present Illness: CC: Abdominal pain/Vomiting HPI: 37 year old male with h/o HTN, ESRD on HD, hyperparathyroidism s/p parathyroidectomy who returns to hospital with abdominal pain. He was recently admitted with abdominal pain, n/v, and diarrhea. This has been a recurrent problem. He reports diffuse abdominal pain, bloating, and gas. He says yesterday the pain prevented him from going to dialysis then he got more sick. He started having N/V x 2-3 with slight blood tinge. He also had loose bm with specks of blood. Stool is brown. He had egd/colon at 06/02 at [facility]. He has been off PPI as outpatient. No chest pain or sob. No fever. PMHx: HTN, ESRD on HD PSHx: Multiple abdominal procedures to adjust or replace PD catheter prior to insertion of permacath and conversion to HD, left AV fistula for HD, B/L knee replacement FHx: Significant for ESRD, HTN Social: Denies tobacco, EtOH or illicit drug use 12 system ROS performed and negative except where stated. Past Patient History - Infectious Disease Hx of Infectious Diseases: None - Past Medical History & Family History Past Medical History?: Yes - Past Social History Smoking Status: Never Smoked - CARDIAC Hx Cardiac Disorders: Yes Hx Hypercholesterolemia: Yes Hx Hypertension: Yes Hx Peripheral Edema: Yes - PULMONARY Hx Respiratory Disorders: No - NEUROLOGICAL Hx Neurological Disorder: No - HEENT Hx HEENT Problems: No - RENAL Hx Chronic Kidney Disease: Yes Hx Dialysis: Yes Type of Dialysis Access: left av shunt Date of Last Dialysis Treatment: 01/03/18 Hx Kidney Stones: No Hx Neurogenic Bladder: No Hx Pyelonephritis: No Hx Renal (Kidney) Cancer: No Hx Renal Failure: Yes - ENDOCRINE/METABOLIC Hx Endocrine Disorders: Yes Hx Hyperthyroidism: Yes - HEMATOLOGICAL/ONCOLOGICAL Hx Blood Disorders: Yes Hx Anemia: Yes Hx Human Immunodeficiency Virus (HIV): No - INTEGUMENTARY Hx Dermatological Problems: No - MUSCULOSKELETAL/RHEUMATOLOGICAL Hx Musculoskeletal Disorders: No Hx Falls: No - GASTROINTESTINAL Hx Gastrointestinal Disorders: No - GENITOURINARY/GYNECOLOGICAL Hx Genitourinary Disorders: No - PSYCHIATRIC Hx Psychophysiologic Disorder: No Hx Substance Use: No - SURGICAL HISTORY Hx Surgeries: Yes Hx Arteriovenous Shunt: Yes Hx Joint Replacement: Yes Other/Comment: bilateral knee replacement, left arm shunt, Permacath, back sx. - ANESTHESIA Hx Anesthesia: Yes Hx Anesthesia Reactions: No Hx Malignant Hyperthermia: No Has any member of the family had a problem w/ anesthesia?: No Meds Allergies/Adverse Reactions: Allergies Allergy/AdvReac Type Severity Reaction Status Date / Time shellfish derived Allergy ANAPHYLAXIS Verified 01/05/18 22:40 - Medications Medications: Current Medications Calcitriol (Rocaltrol) 0.5 mcg PO TID [facility] Calcium Carbonate (Oscal) 500 mg PO BID [facility] Cinacalcet (Sensipar) 30 mg PO DAILY [facility] Famotidine (Pepcid) 20 mg PO BID [facility] Hydromorphone HCl (Dilaudid) 0.5 mg IVP Q6 PRN PRN Reason: Pain, severe (8-10) Stop: 01/08/18 06:09 Pantoprazole Sodium 40 mg/ (Sodium Chloride) 100 mls @ 20 mls/hr IV .Q5H [facility] PRN Reason: 8 MG/HR Last Admin: 01/06/18 05:35 Dose: Not Given Metoprolol Tartrate (Lopressor) 25 mg PO BID [facility] Pravastatin Sodium (Pravachol) 20 mg PO HS [facility] Vitamin B Complex/Vit C/Folic Acid (Nephro-Chey) 1 tab PO DAILY [facility] Physical Exam - Constitutional Appears: Non-toxic, No Acute Distress, Chronically Ill - Head Exam Head Exam: ATRAUMATIC, NORMOCEPHALIC - Eye Exam Eye Exam: Normal appearance. absent: Scleral icterus Pupil Exam: PERRL - ENT Exam ENT Exam: Mucous Membranes Moist, Normal Oropharynx - Neck Exam Neck exam: Negative for: Lymphadenopathy, Thyromegaly - Respiratory Exam Respiratory Exam: Clear to Auscultation Bilateral, NORMAL BREATHING PATTERN. absent: Respiratory Distress - Cardiovascular Exam Cardiovascular Exam: REGULAR RHYTHM, +S1, +S2 - GI/Abdominal Exam GI & Abdominal Exam: Soft. absent: Distended, Firm, Guarding, Tenderness - Extremities Exam Extremities exam: Positive for: normal capillary refill. Negative for: pedal edema - Neurological Exam Neurological exam: Alert, Oriented x3 - Psychiatric Exam Psychiatric exam: Normal Affect, Normal Mood - Skin Skin Exam: Dry, Warm Results - Vital Signs Recent Vital Signs: Last Vital Signs Temp 97.3 F L 01/06/18 05:00 Pulse 82 01/06/18 05:00 Resp 18 01/06/18 05:00 BP 104/70 01/06/18 05:00 Pulse Ox 96 01/06/18 05:00 - Labs Result Diagrams: 01/06/18 00:08 01/06/18 00:08 Labs: Laboratory Results - last 24 hr 01/05/18 01/06/18 01/06/18 23:42 00:08 00:08 WBC 5.8 RBC 2.96 L Hgb 10.4 L Hct 31.4 L MCV 106.1 H MCH 35.0 H MCHC 33.0 RDW 15.2 H Plt Count 134 MPV 8.6 Neut % (Auto) 46.4 L Lymph % (Auto) 34.0 [place] % (Auto) 10.9 H Eos % (Auto) 7.5 H Baso % (Auto) 1.2 Neut # (Auto) 2.7 Lymph # (Auto) 2.0 [place] # (Auto) 0.6 Eos # (Auto) 0.4 Baso # (Auto) 0.1 PT INR APTT Sodium 145 Potassium 6.7 H* D Chloride 92 L Carbon Dioxide 33 H Anion Gap 27 H BUN 54 H Creatinine 15.7 H* D Est GFR ( Amer) 4 Est GFR (Non-Af Amer) 4 POC Glucose (mg/dL) 73 Random Glucose 86 Calcium 9.5 Total Bilirubin 1.1 AST 25 ALT 20 L Alkaline Phosphatase 84 Total Protein 9.2 H Albumin 4.4 Globulin 4.7 H Albumin/Globulin Ratio 0.9 L Lipase 78 01/06/18 01/06/18 01/06/18 00:08 03:44 04:18 WBC RBC Hgb Hct MCV MCH MCHC RDW Plt Count MPV Neut % (Auto) Lymph % (Auto) [place] % (Auto) Eos % (Auto) Baso % (Auto) Neut # (Auto) Lymph # (Auto) [place] # (Auto) Eos # (Auto) Baso # (Auto) PT 12.7 INR 1.1 APTT 33.6 Sodium Potassium Chloride Carbon Dioxide Anion Gap BUN Creatinine Est GFR ( Amer) Est GFR (Non-Af Amer) POC Glucose (mg/dL) 34 L* 185 H Random Glucose Calcium Total Bilirubin AST ALT Alkaline Phosphatase Total Protein Albumin Globulin Albumin/Globulin Ratio Lipase Assessment & Plan - Assessment and Plan (Free Text) Assessment: 37 year old male with h/o HTN, ESRD on HD admitted with abdominal pain, nausea, and vomiting with blood tinged vomit. 1. Abdominal pain 2. Nausea and vomiting 3. Anemia of chronic disease Plan: -no overt GI hemorrhage -hgb is at baseline -he may have had slighly blood tinged vomit -recommend acid suppressive therapy and anti-emetics -recommend dialysis considering hyperkalemia -had CT abdomen recently which was unremarkable -had EGD/Colon in 06/02, also unremarkable -supportive meaures for now - Date & Time Date: 01/06/18 Time: 08:10
[2018-01-06] MEDS: Multivitamin Vitamin B Complex (Nephro-Vite) Tab PO SCH (08:37)
--- NOTE | 2018-01-06 08:54 | CP.PCM.CON ---
History of Present Illness - History of Present Illness History of Present Illness: Patient is a 37 years of age male in reported to the emergency room complaining of some shortness of breath abdominal pain and reported to have diarrhea as well and he missed dialysis and in the emergency room his potassium was elevated and was given multiple medication for hyperkalemia. Patient has been admitted to the previously couple of time for abdominal pain and shortness of breath reported and chest pain. Past medical history end stage renal disease on maintenance hemodialysis hypertension as well and perhaps he may have parathyroidectomy surgery. Social history noncontributory Review of system as noted below Review of Systems - Review of Systems Systems not reviewed;Unavailable: Respiratory Distress - Constitutional Constitutional: absent: Chills - Cardiovascular Cardiovascular: Dyspnea, Dyspnea on Exertion. absent: Acrocyanosis, Chest Pain , Leg Edema - Respiratory Respiratory: Cough, Dyspnea, Chest Congestion - Gastrointestinal Gastrointestinal: Abdominal Pain, Bloating, Diarrhea - Musculoskeletal Musculoskeletal: Muscle Weakness - Neurological Neurological: As Per HPI. absent: Confusion, Headaches - Hematologic/Lymphatic Hematologic: absent: Easy Bleeding Past Patient History - Infectious Disease Hx of Infectious Diseases: None - Past Medical History & Family History Past Medical History?: Yes - Past Social History Smoking Status: Never Smoked - CARDIAC Hx Cardiac Disorders: Yes Hx Hypercholesterolemia: Yes Hx Hypertension: Yes Hx Peripheral Edema: Yes - PULMONARY Hx Respiratory Disorders: No - NEUROLOGICAL Hx Neurological Disorder: No - HEENT Hx HEENT Problems: No - RENAL Hx Chronic Kidney Disease: Yes Hx Dialysis: Yes Type of Dialysis Access: left av shunt Date of Last Dialysis Treatment: 01/03/18 Hx Kidney Stones: No Hx Neurogenic Bladder: No Hx Pyelonephritis: No Hx Renal (Kidney) Cancer: No Hx Renal Failure: Yes - ENDOCRINE/METABOLIC Hx Endocrine Disorders: Yes Hx Hyperthyroidism: Yes - HEMATOLOGICAL/ONCOLOGICAL Hx Blood Disorders: Yes Hx Anemia: Yes Hx Human Immunodeficiency Virus (HIV): No - INTEGUMENTARY Hx Dermatological Problems: No - MUSCULOSKELETAL/RHEUMATOLOGICAL Hx Musculoskeletal Disorders: No Hx Falls: No - GASTROINTESTINAL Hx Gastrointestinal Disorders: No - GENITOURINARY/GYNECOLOGICAL Hx Genitourinary Disorders: No - PSYCHIATRIC Hx Psychophysiologic Disorder: No Hx Substance Use: No - SURGICAL HISTORY Hx Surgeries: Yes Hx Arteriovenous Shunt: Yes Hx Joint Replacement: Yes Other/Comment: bilateral knee replacement, left arm shunt, Permacath, back sx. - ANESTHESIA Hx Anesthesia: Yes Hx Anesthesia Reactions: No Hx Malignant Hyperthermia: No Has any member of the family had a problem w/ anesthesia?: No Meds Allergies/Adverse Reactions: Allergies Allergy/AdvReac Type Severity Reaction Status Date / Time shellfish derived Allergy ANAPHYLAXIS Verified 01/05/18 22:40 - Medications Medications: Current Medications Calcitriol (Rocaltrol) 0.5 mcg PO TID [facility] Calcium Carbonate (Oscal) 500 mg PO BID [facility] Last Admin: 01/06/18 08:43 Dose: 500 mg Cinacalcet (Sensipar) 30 mg PO DAILY [facility] Last Admin: 01/06/18 08:37 Dose: 30 mg Famotidine (Pepcid) 20 mg PO BID [facility] Last Admin: 01/06/18 08:37 Dose: 20 mg Hydromorphone HCl (Dilaudid) 0.5 mg IVP Q6 PRN PRN Reason: Pain, severe (8-10) Stop: 01/08/18 06:09 Last Admin: 01/06/18 08:49 Dose: 0.5 mg Pantoprazole Sodium 40 mg/ (Sodium Chloride) 100 mls @ 20 mls/hr IV .Q5H [facility] PRN Reason: 8 MG/HR Last Admin: 01/06/18 08:46 Dose: 20 mls/hr Metoprolol Tartrate (Lopressor) 25 mg PO BID [facility] Last Admin: 01/06/18 08:38 Dose: Not Given Pravastatin Sodium (Pravachol) 20 mg PO [facility] Vitamin B Complex/Vit C/Folic Acid (Nephro-Chey) 1 tab PO DAILY [facility] Last Admin: 01/06/18 08:37 Dose: 1 tab Physical Exam - Constitutional Appears: No Acute Distress - Eye Exam Eye Exam: Conjunctival injection - ENT Exam ENT Exam: Mucous Membranes Moist - Neck Exam Neck exam: Negative for: Lymphadenopathy - Respiratory Exam Respiratory Exam: Rales, Rhonchi. absent: Chest Wall Tenderness - Cardiovascular Exam Cardiovascular Exam: absent: Gallop, JVD, Rubs - GI/Abdominal Exam GI & Abdominal Exam: Normal Bowel Sounds. absent: Rigid - Extremities Exam Extremities exam: Negative for: calf tenderness, pedal edema - Back Exam Back exam: absent: CVA tenderness (L), CVA tenderness (R) - Neurological Exam Neurological exam: Alert - Psychiatric Exam Psychiatric exam: Anxious, Normal Affect Results - Vital Signs Recent Vital Signs: Last Vital Signs Temp 97.3 F L 01/06/18 05:00 Pulse 82 01/06/18 05:00 Resp 18 01/06/18 05:00 BP 104/70 01/06/18 05:00 Pulse Ox 96 01/06/18 05:00 - Labs Result Diagrams: 01/06/18 00:08 01/06/18 00:08 Labs: Laboratory Results - last 24 hr 01/05/18 01/06/18 01/06/18 23:42 00:08 00:08 WBC 5.8 RBC 2.96 L Hgb 10.4 L Hct 31.4 L MCV 106.1 H MCH 35.0 H MCHC 33.0 RDW 15.2 H Plt Count 134 MPV 8.6 Neut % (Auto) 46.4 L Lymph % (Auto) 34.0 [place] % (Auto) 10.9 H Eos % (Auto) 7.5 H Baso % (Auto) 1.2 Neut # (Auto) 2.7 Lymph # (Auto) 2.0 [place] # (Auto) 0.6 Eos # (Auto) 0.4 Baso # (Auto) 0.1 PT INR APTT Sodium 145 Potassium 6.7 H* D Chloride 92 L Carbon Dioxide 33 H Anion Gap 27 H BUN 54 H Creatinine 15.7 H* D Est GFR ( Amer) 4 Est GFR (Non-Af Amer) 4 POC Glucose (mg/dL) 73 Random Glucose 86 Calcium 9.5 Total Bilirubin 1.1 AST 25 ALT 20 L Alkaline Phosphatase 84 Total Protein 9.2 H Albumin 4.4 Globulin 4.7 H Albumin/Globulin Ratio 0.9 L Lipase 78 01/06/18 01/06/18 01/06/18 00:08 03:44 04:18 WBC RBC Hgb Hct MCV MCH MCHC RDW Plt Count MPV Neut % (Auto) Lymph % (Auto) [place] % (Auto) Eos % (Auto) Baso % (Auto) Neut # (Auto) Lymph # (Auto) [place] # (Auto) Eos # (Auto) Baso # (Auto) PT 12.7 INR 1.1 APTT 33.6 Sodium Potassium Chloride Carbon Dioxide Anion Gap BUN Creatinine Est GFR ( Amer) Est GFR (Non-Af Amer) POC Glucose (mg/dL) 34 L* 185 H Random Glucose Calcium Total Bilirubin AST ALT Alkaline Phosphatase Total Protein Albumin Globulin Albumin/Globulin Ratio Lipase Assessment & Plan (1) Abdominal pain Status: Acute Priority: High (2) End stage renal disease Assessment and Plan: End stage renal disease on maintenance hemodialysis patient missed dialysis and need urgent hemodialysis which about to start now. Severe hyperkalemia related to missing dialysis patient was given multiple medication in the emergency room and dialysis about to start. Abdominal pain GI evaluation on the case , GI bleeding ? Hypertension continue the same medication Hyperphosphatemia continue the same medication phosphorous binders Hemodialysis to start to through AV shunt which has good bruit Anemia hemoglobin 10.4 to continue with EPO Status: Acute (3) Gastrointestinal hemorrhage Status: Acute (4) Hyperkalemia Status: Acute Priority: High
--- NOTE | 2018-01-06 09:20 | CP.PCM.PN ---
Subjective - Date & Time of Evaluation Date of Evaluation: 01/06/18 Time of Evaluation: 09:18 - Subjective Subjective: Dialysis note Patient in bed and missed his dialysis and potassium elevated K was given multiple medications and hemodialysis starting now Potassium bath 2 mEq Bicarbonate bath 34 Sodium bath 138 Ultrafiltration 2000 mL Hemodialysis running through AV shunt with good bruit Patient is congested Also reported to have questionable GI bleeding therefore we would not give heparin GI evaluation diacussed with certified histologic technician at bed side Objective - Vital Signs/Intake and Output Vital Signs (last 24 hours): Temp Pulse Resp BP Pulse Ox 97.3 F L 82 18 104/70 96 01/06/18 05:00 01/06/18 05:00 01/06/18 05:00 01/06/18 05:00 01/06/18 05:00 - Medications Medications: Current Medications Calcitriol (Rocaltrol) 0.5 mcg PO TID [facility] Calcium Carbonate (Oscal) 500 mg PO BID [facility] Last Admin: 01/06/18 08:43 Dose: 500 mg Cinacalcet (Sensipar) 30 mg PO DAILY [facility] Last Admin: 01/06/18 08:37 Dose: 30 mg Famotidine (Pepcid) 20 mg PO BID [facility] Last Admin: 01/06/18 08:37 Dose: 20 mg Hydromorphone HCl (Dilaudid) 0.5 mg IVP Q6 PRN PRN Reason: Pain, severe (8-10) Stop: 01/08/18 06:09 Last Admin: 01/06/18 08:49 Dose: 0.5 mg Pantoprazole Sodium 40 mg/ (Sodium Chloride) 100 mls @ 20 mls/hr IV .Q5H [facility] PRN Reason: 8 MG/HR Last Admin: 01/06/18 08:46 Dose: 20 mls/hr Metoprolol Tartrate (Lopressor) 25 mg PO BID [facility] Last Admin: 01/06/18 08:38 Dose: Not Given Pravastatin Sodium (Pravachol) 20 mg PO [facility] Vitamin B Complex/Vit C/Folic Acid (Nephro-Chey) 1 tab PO DAILY [facility] Last Admin: 01/06/18 08:37 Dose: 1 tab - Labs Labs: 01/06/18 00:08 01/06/18 00:08 PT 12.7 Seconds (9.8-13.1) 01/06/18 00:08 INR 1.1 (0.9-1.2) 01/06/18 00:08 APTT 33.6 Seconds (25.6-37.1) 01/06/18 00:08 - Constitutional Appears: No Acute Distress - ENT Exam ENT Exam: Mucous Membranes Moist - Neck Exam Neck Exam: absent: Lymphadenopathy - Respiratory Exam Respiratory Exam: Rales, Rhonchi. absent: Chest Wall Tenderness - Cardiovascular Exam Cardiovascular Exam: absent: Gallop, JVD, Rubs - GI/Abdominal Exam GI & Abdominal Exam: Soft - Extremities Exam Extremities Exam: absent: Calf Tenderness - Back Exam Back Exam: absent: CVA tenderness (L), CVA tenderness (R) - Neurological Exam Neurological Exam: Alert - Psychiatric Exam Psychiatric exam: Normal Affect - Skin Skin Exam: absent: Cyanosis Assessment and Plan (1) Abdominal pain Status: Acute (2) End stage renal disease Assessment & Plan: End stage renal disease receiving urgent hemodialysis now volume overloaded Patient missed his dialysis Hyperkalemia Anemia Possible GI bleeding patient. Seen by GI and had CT scan Hyperphosphatemia history ,continue phosphorus binders Status: Acute (3) Gastrointestinal hemorrhage Status: Acute (4) Hyperkalemia Status: Acute
--- NOTE | 2018-01-06 09:58 | CARD ---
APPROVED REPORT EKG Measurement Heart [id number] <Conclusion> Normal sinus rhythm Left ventricular hypertrophy with QRS widening Abnormal ECG
[2018-01-06] MEDS: HYDROmorphone 0.5 mg/0.5 ml ISec IVP PRN ×2 (15:09→21:04)
[2018-01-06] MEDS ORDERED: HYDROmorphone 0.5 mg/0.5 ml ISec IVP SCH (17:00)
[2018-01-06] MEDS: Pravastatin Sodium 20 MG TAB PO SCH (21:10)
[2018-01-07] MEDS: HYDROmorphone 0.5 mg/0.5 ml ISec IVP PRN ×3 (01:11→08:54)
[2018-01-07] MEDS ORDERED: POLYETHYLENE GLYCOL 3350 17 GM/Dose PACKET PO PRN (08:32)
--- NOTE | 2018-01-07 08:34 | CP.PCM.PN ---
Subjective - Date & Time of Evaluation Date of Evaluation: 01/07/18 Time of Evaluation: 08:28 - Subjective Subjective: Patient seen and examined, resting in bed comfortably. No acute events overnight. He continues to endorse generalized abdominal pain mainly in epigastric region. He reports one episode of vomiting yesterday, not witnessed by nursing staff. He had a liquid bowel movement yesterday and has been able to tolerate PO diet. 12 point review of systems performed, negative aside from mentioned above. Objective - Vital Signs/Intake and Output Vital Signs (last 24 hours): Temp Pulse Resp BP Pulse Ox 97.6 F 100 H 18 91/59 L 99 01/07/18 05:07 01/07/18 05:07 01/07/18 05:07 01/07/18 05:07 01/07/18 05:07 - Medications Medications: Current Medications Calcitriol (Rocaltrol) 0.5 mcg PO TID [facility] Last Admin: 01/06/18 16:29 Dose: 0.5 mcg Calcium Carbonate (Oscal) 500 mg PO BID [facility] Last Admin: 01/06/18 16:30 Dose: 500 mg Cinacalcet (Sensipar) 30 mg PO DAILY [facility] Last Admin: 01/06/18 08:37 Dose: 30 mg Famotidine (Pepcid) 20 mg PO BID [facility] Last Admin: 01/06/18 16:30 Dose: 20 mg Hydromorphone HCl (Dilaudid) 0.25 mg IVP Q4 PRN PRN Reason: Pain, severe (8-10) Stop: 01/08/18 06:09 Last Admin: 01/07/18 05:01 Dose: 0.25 mg Metoprolol Tartrate (Lopressor) 25 mg PO BID [facility] Last Admin: 01/06/18 16:46 Dose: Not Given Pantoprazole Sodium (Protonix Inj) 40 mg IVP DAILY [facility] Last Admin: 01/06/18 13:10 Dose: Not Given Pravastatin Sodium (Pravachol) 20 mg PO HS [facility] Last Admin: 01/06/18 21:10 Dose: 20 mg Simethicone (Mylicon Chew Tab) 80 mg PO TID [facility]N PRN Reason: Flatulence Vitamin B Complex/Vit C/Folic Acid (Nephro-Chey) 1 tab PO DAILY [facility] Last Admin: 03/23/18 08:37 Dose: 1 tab - Labs Labs: 01/06/18 00:08 01/06/18 00:08 PT 12.7 Seconds (9.8-13.1) 01/06/18 00:08 INR 1.1 (0.9-1.2) 01/06/18 00:08 APTT 33.6 Seconds (25.6-37.1) 01/06/18 00:08 - Constitutional Appears: Non-toxic, No Acute Distress - Head Exam Head Exam: NORMAL INSPECTION - Eye Exam Eye Exam: EOMI, Normal appearance - ENT Exam ENT Exam: Mucous Membranes Moist - Respiratory Exam Respiratory Exam: Clear to Ausculation Bilateral - Cardiovascular Exam Cardiovascular Exam: REGULAR RHYTHM, +S1, +S2 - GI/Abdominal Exam GI & Abdominal Exam: Distended, Soft Additional comments: mild tenderness to palpation in epigastric area +umbilical hernia - Extremities Exam Extremities Exam: Normal Inspection - Skin Skin Exam: Dry, Intact, Normal Color, Warm Assessment and Plan - Assessment and Plan (Free Text) Assessment: ESRD on HD HTN Hyperparathyroidism Abdominal pain, gas distention Plan: - Diet as tolerated - Continue with PPI therapy - Suggest trial of simethicone - May use miralax to facilitate with bowel movements - No further planned GI interventions, patient would benefit from outpatient follow up. Will sign off case, please reconsult as necessary, thank you.
[2018-01-07] MEDS: Multivitamin Vitamin B Complex (Nephro-Vite) Tab PO SCH (08:39)
--- NOTE | 2018-01-07 10:58 | PN ---
DATE: 01/07/2018 SUBJECTIVE: The patient is seen and examined. Interim events noted. Consults noted and appreciated. Gastroenterology and Nephrology followup and intervention noted and appreciated. The patient continues to complain of abdominal discomfort and demonstrates medication-seeking behavior. No chest pain. No shortness of breath. PHYSICAL EXAMINATION: GENERAL: The patient is in no acute distress. VITAL SIGNS: Stable. HEART: S1 and S2, normal and regular. LUNGS: Good bilateral air exchange. ABDOMEN: Soft and nontender. No sign of acute abdomen. No guarding. No rigidity. No rebound. Bowel sounds are plus and normal. EXTREMITIES: No edema. No calf swelling. No tenderness. No acute ischemia. DANCE HISTORIAN: Essentially unchanged. DIAGNOSTIC DATA: Available diagnostic data reviewed. PLAN: Telemetry monitoring does not show any significant arrhythmia. Overall, the patient's general medical condition is stable. Plan as ordered. Beny Morales MD
[2018-01-07] MEDS: Simethicone 80 mg Chewtab PO PRN (12:54)
[2018-01-07] MEDS ORDERED: Oxycodone/Acetaminophen 5/325 mg Tab PO PRN (14:14)
--- NOTE | 2018-01-07 20:46 | CP.PCM.PN ---
Subjective - Date & Time of Evaluation Date of Evaluation: 01/07/18 Time of Evaluation: 20:45 - Subjective Subjective: Nephrology Consultation Note Assessment: Stable abdomen pain Hypertensive Chronic Kidney Disease (I12.0) End stage renal disease (N18.6) dependence on hemodialysis (Z99.2) (TTS) via AVF Anemia (D64.9), Hyperphosphatemia (E83.39), Secondary Hyperparathyroidism (E21.1 ), HTN (I12.0) Plan: Will plan for HD today as ordered. Continue with Nephrovite 1 tab/day. PRBC as needed for anemia. add GERSON if Hb <10 Continue with phos binders Continue with calcitriol, sensipar BP control with meds as ordered. Patient not on RAAS jessica as BP controlled, Consider if blood pressure stays high Glycemic control, Dialysis consistent diet Further work up/management as per primary team Dose meds/antibiotics (if needed) for ESRD status. Avoid fleets enema/magnesium based laxatives. Thanks for allowing me to participate in care of your patient. Will follow patient with you. Please call if any Qs Dr Al Weeks Office: [phone] Subjective: Noted events overnight. Patients feels okay. Denies chest pain, palpitation, shortness of breath, leg swelling. All other negative except abdomen pain Physical Examination: General Appearance: Comfortable, in no acute respiratory distress, co-operative . Vitals reviewed and noted as below Head; Atraumatic, normocephalic ENT: no ulcers no thrush. Tongue is midline. Oropharynx: no rash or ulcers. EYES: Pupils are equal, round and reactive to light accommodation. Eye muscles and extraocular movement intact. Sclera is anicteric. Neck; supple no lymphadenopathy, no thyromegaly or bruit Lungs: Normal respiratory rate/effort. Breath sounds bilateral equal and clear Heart: Normal rate. s1s2 normal. No rub or gallop. Extremities: no edema. No varicose veins Neurological: Patient is alert, awake and oriented to person, place and time. No focal deficit. Strength bilateral appropriate and equal Skin: Warm and dry. Normal turgor. No rash. Palpitation: Normal elasticity for age Abdomen: Abdomen is soft. Bowel sounds +. There is mild abdominal tenderness, no guarding/rigidity or organomegaly Psych: normal insight and normal affect/mood MSK: no joint tenderness or swelling. Digits and nails normal, no deformity : kidney or bladder not palpable Access: AVF Labs/imaging reviewed. Past medical history, past surgical history, family history, social history, allergy reviewed and noted as below Family Hx: no hx of CKD. Non contributory Objective - Vital Signs/Intake and Output Vital Signs (last 24 hours): Temp Pulse Resp BP Pulse Ox 97.8 F 100 H 16 98/69 L 99 01/07/18 20:16 01/07/18 20:16 01/07/18 20:16 01/07/18 20:16 01/07/18 20:16 - Medications Medications: Current Medications Calcitriol (Rocaltrol) 0.5 mcg PO TID [facility] Last Admin: 01/07/18 16:20 Dose: 0.5 mcg Calcium Carbonate (Oscal) 500 mg PO BID [facility] Last Admin: 01/07/18 16:21 Dose: 500 mg Cinacalcet (Sensipar) 30 mg PO DAILY [facility] Last Admin: 01/07/18 08:39 Dose: 30 mg Famotidine (Pepcid) 20 mg PO BID [facility] Last Admin: 01/07/18 16:20 Dose: 20 mg Metoprolol Tartrate (Lopressor) 25 mg PO BID [facility] Last Admin: 01/07/18 16:21 Dose: 25 mg Oxycodone/Acetaminophen (Percocet 5/325 Mg Tab) 1 tab PO Q4 PRN PRN Reason: Pain, moderate (4-7) Stop: 01/10/18 14:15 Pantoprazole Sodium (Protonix Inj) 40 mg IVP DAILY [facility] Last Admin: 01/07/18 08:38 Dose: 40 mg Polyethylene Glycol (Miralax) 17 gm PO DAILY PRN PRN Reason: Constipation Pravastatin Sodium (Pravachol) 20 mg PO HS [facility] Last Admin: 01/06/18 21:10 Dose: 20 mg Simethicone (Mylicon Chew Tab) 80 mg PO TID PRN PRN Reason: Flatulence Last Admin: 01/07/18 12:54 Dose: 80 mg Vitamin B Complex/Vit C/Folic Acid (Nephro-Chey) 1 tab PO DAILY [facility] Last Admin: 01/07/18 08:39 Dose: 1 tab - Labs Labs: 01/06/18 00:08 01/06/18 00:08 PT 12.7 Seconds (9.8-13.1) 01/06/18 00:08 INR 1.1 (0.9-1.2) 01/06/18 00:08 APTT 33.6 Seconds (25.6-37.1) 01/06/18 00:08
[2018-01-07] MEDS: Pravastatin Sodium 20 MG TAB PO SCH (22:00)
[2018-01-08] MEDS: Simethicone 80 mg Chewtab PO PRN ×2 (06:23→08:58)
[2018-01-08 08:40] LABS: CALCIUM 9.8 mg/dL (8.4-10.2)
[2018-01-08] MEDS: Multivitamin Vitamin B Complex (Nephro-Vite) Tab PO SCH (08:58)
--- NOTE | 2018-01-08 09:49 | PN ---
DATE: 01/08/2018 SUBJECTIVE: The patient is seen and examined. Interim events noted. Consults noted and appreciated. Nephrology and gastroenterology followup and interventions noted and appreciated. The patient remains in progressive care unit on telemetry monitoring. Feels much better. Abdominal pain improved. No chest pain or shortness of breath. PHYSICAL EXAMINATION: GENERAL: The patient is in no acute distress. VITAL SIGNS: Stable. HEART: S1 and S2, normal and regular. LUNGS: Good bilateral air exchange. ABDOMEN: Soft and nontender. No organomegaly. No fluid. Bowel sounds are plus and normal. No sign of acute abdomen. No guarding, no rigidity, no rebound. EXTREMITIES: No edema, no calf swelling. No tenderness. No acute ischemia. 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 DIAGNOSTIC DATA: Available diagnostic data reviewed. PLAN: Overall, the patient's general medical condition is stable. Telemetry monitoring does not show any significant arrhythmia. Plan as ordered. Beny Morales MD
--- NOTE | 2018-01-08 16:10 | CP.PCM.PN ---
Subjective - Date & Time of Evaluation Date of Evaluation: 01/08/18 Time of Evaluation: 16:09 - Subjective Subjective: Nephrology Consultation Note Assessment: Stable abdomen pain Hypertensive Chronic Kidney Disease (I12.0) End stage renal disease (N18.6) dependence on hemodialysis (Z99.2) (TTS) via AVF Anemia (D64.9), Hyperphosphatemia (E83.39), Secondary Hyperparathyroidism (E21.1 ), HTN (I12.0) Plan: Will plan for HD tuesday as ordered. Continue with Nephrovite 1 tab/day. PRBC as needed for anemia. add GERSON if Hb <10 Continue with phos binders Continue with calcitriol, sensipar BP control with meds as ordered. Patient not on RAAS jessica as BP low side Glycemic control, Dialysis consistent diet Further work up/management as per primary team Dose meds/antibiotics (if needed) for ESRD status. Avoid fleets enema/magnesium based laxatives. GI following Thanks for allowing me to participate in care of your patient. Will follow patient with you. Please call if any Qs Dr Al Weeks Office: [phone] Subjective: Noted events overnight. Patients feels okay. Denies chest pain, palpitation, shortness of breath, leg swelling. All other negative except abdomen pain Physical Examination: General Appearance: Comfortable, in no acute respiratory distress, co-operative . Vitals reviewed and noted as below Head; Atraumatic, normocephalic ENT: no ulcers no thrush. Tongue is midline. Oropharynx: no rash or ulcers. EYES: Pupils are equal, round and reactive to light accommodation. Eye muscles and extraocular movement intact. Sclera is anicteric. Neck; supple no lymphadenopathy, no thyromegaly or bruit Lungs: Normal respiratory rate/effort. Breath sounds bilateral equal and clear Heart: Normal rate. s1s2 normal. No rub or gallop. Extremities: no edema. No varicose veins Neurological: Patient is alert, awake and oriented to person, place and time. No focal deficit. Strength bilateral appropriate and equal Skin: Warm and dry. Normal turgor. No rash. Palpitation: Normal elasticity for age Abdomen: Abdomen is soft. Bowel sounds +. There is mild abdominal tenderness, no guarding/rigidity or organomegaly Psych: normal insight and normal affect/mood MSK: no joint tenderness or swelling. Digits and nails normal, no deformity : kidney or bladder not palpable Access: AVF Labs/imaging reviewed. Past medical history, past surgical history, family history, social history, allergy reviewed and noted as below Family Hx: no hx of CKD. Non contributory Objective - Vital Signs/Intake and Output Vital Signs (last 24 hours): Temp Pulse Resp BP Pulse Ox 97.6 F 89 16 93/61 L 100 01/08/18 08:33 01/08/18 12:28 01/08/18 12:28 01/08/18 12:28 01/08/18 12:28 - Medications Medications: Current Medications Calcitriol (Rocaltrol) 0.5 mcg PO TID [facility] Last Admin: 01/08/18 13:54 Dose: 0.5 mcg Calcium Carbonate (Oscal) 500 mg PO BID [facility] Last Admin: 01/08/18 08:59 Dose: 500 mg Cinacalcet (Sensipar) 30 mg PO DAILY [facility] Last Admin: 01/08/18 09:01 Dose: 30 mg Famotidine (Pepcid) 20 mg PO BID [facility] Last Admin: 01/08/18 08:59 Dose: 20 mg Metoprolol Tartrate (Lopressor) 25 mg PO BID [facility] Last Admin: 01/08/18 08:58 Dose: Not Given Oxycodone/Acetaminophen (Percocet 5/325 Mg Tab) 1 tab PO Q4 PRN PRN Reason: Pain, moderate (4-7) Stop: 01/10/18 14:15 Pantoprazole Sodium (Protonix Inj) 40 mg IVP DAILY [facility] Last Admin: 01/08/18 09:00 Dose: 40 mg Polyethylene Glycol (Miralax) 17 gm PO DAILY PRN PRN Reason: Constipation Pravastatin Sodium (Pravachol) 20 mg PO HS [facility] Last Admin: 01/07/18 22:00 Dose: Not Given Simethicone (Mylicon Chew Tab) 80 mg PO TID PRN PRN Reason: Flatulence Last Admin: 01/08/18 08:58 Dose: 80 mg Vitamin B Complex/Vit C/Folic Acid (Nephro-Chey) 1 tab PO DAILY [facility] Last Admin: 01/08/18 08:58 Dose: 1 tab - Labs Labs: 01/06/18 00:08 01/08/18 06:10 PT 12.7 Seconds (9.8-13.1) 01/06/18 00:08 INR 1.1 (0.9-1.2) 01/06/18 00:08 APTT 33.6 Seconds (25.6-37.1) 01/06/18 00:08
[2018-01-08] MEDS: Pravastatin Sodium 20 MG TAB PO SCH (22:35)
[2018-01-09 00:59] VITALS: RESP 20
[2018-01-09 05:46] VITALS: O2SAT 100
--- NOTE | 2018-01-09 09:04 | PN ---
DATE: 01/09/2018 SUBJECTIVE: The patient is seen and examined. Interim events noted. Consults noted and appreciated. Nephrology followup and interventions noted and appreciated. The patient remains in Progressive Care Unit on telemetry monitoring. Feels okay. Denies any chest pain or shortness of breath. PHYSICAL EXAMINATION: GENERAL: The patient is in no acute distress. VITAL SIGNS: Stable. HEART: S1 and S2, normal and regular. LUNGS: Good bilateral air exchange. ABDOMEN: Soft and nontender. EXTREMITIES: No edema. No calf swelling. No tenderness. No acute ischemia. CENTRAL NERVOUS SYSTEM: . DIAGNOSTIC DATA: Reviewed. Telemetry monitoring does not reveal significant arrhythmia. ASSESSMENT AND PLAN: Overall, the patient's general medical condition is stable. Plan as ordered. Beny Morales MD
[2018-01-09] MEDS: Multivitamin Vitamin B Complex (Nephro-Vite) Tab PO SCH (09:17)
[2018-01-09] MEDS: Simethicone 80 mg Chewtab PO PRN (09:24)
[2018-01-09 12:44] VITALS: BP 110/59; PULSE 98; TEMP 98.4
--- NOTE | 2018-01-09 14:53 | CP.PCM.PN ---
Subjective - Date & Time of Evaluation Date of Evaluation: 01/09/18 Time of Evaluation: 14:52 - Subjective Subjective: Nephrology Consultation Note Assessment: Stable abdomen pain Hypertensive Chronic Kidney Disease (I12.0) End stage renal disease (N18.6) dependence on hemodialysis (Z99.2) (TTS) via AVF Anemia (D64.9), Hyperphosphatemia (E83.39), Secondary Hyperparathyroidism (E21.1 ), HTN (I12.0) Plan: Will plan for HD tuesday as ordered. Continue with Nephrovite 1 tab/day. PRBC as needed for anemia. add GERSON if Hb <10 Continue with phos binders Continue with calcitriol, sensipar BP control with meds as ordered. Patient not on RAAS jessica as BP low side Glycemic control, Dialysis consistent diet Further work up/management as per primary team Dose meds/antibiotics (if needed) for ESRD status. Avoid fleets enema/magnesium based laxatives. GI following Thanks for allowing me to participate in care of your patient. Will follow patient with you. Please call if any Qs Dr Al Weeks Office: [phone] Subjective: Noted events overnight. Patients feels okay. Denies chest pain, palpitation, shortness of breath, leg swelling. All other negative Physical Examination: General Appearance: Comfortable, in no acute respiratory distress, co-operative . Vitals reviewed and noted as below Head; Atraumatic, normocephalic ENT: no ulcers no thrush. Tongue is midline. Oropharynx: no rash or ulcers. EYES: Pupils are equal, round and reactive to light accommodation. Eye muscles and extraocular movement intact. Sclera is anicteric. Neck; supple no lymphadenopathy, no thyromegaly or bruit Lungs: Normal respiratory rate/effort. Breath sounds bilateral equal and clear Heart: Normal rate. s1s2 normal. No rub or gallop. Extremities: no edema. No varicose veins Neurological: Patient is alert, awake and oriented to person, place and time. No focal deficit. Strength bilateral appropriate and equal Skin: Warm and dry. Normal turgor. No rash. Palpitation: Normal elasticity for age Abdomen: Abdomen is soft. Bowel sounds +. There is no abdominal tenderness, no guarding/rigidity or organomegaly Psych: normal insight and normal affect/mood MSK: no joint tenderness or swelling. Digits and nails normal, no deformity : kidney or bladder not palpable Access: AVF Labs/imaging reviewed. Past medical history, past surgical history, family history, social history, allergy reviewed and noted as below Family Hx: no hx of CKD. Non contributory Objective - Vital Signs/Intake and Output Vital Signs (last 24 hours): Temp Pulse Resp BP Pulse Ox 98.4 F 98 H 20 110/59 L 100 01/09/18 12:43 01/09/18 12:43 01/09/18 12:43 01/09/18 12:43 01/09/18 12:43 - Medications Medications: Current Medications Calcitriol (Rocaltrol) 0.5 mcg PO TID [facility] Last Admin: 01/09/18 14:04 Dose: 0.5 mcg Calcium Carbonate (Oscal) 500 mg PO BID [facility] Last Admin: 01/09/18 09:17 Dose: 500 mg Cinacalcet (Sensipar) 30 mg PO DAILY [facility] Last Admin: 01/09/18 09:17 Dose: 30 mg Famotidine (Pepcid) 20 mg PO BID [facility] Last Admin: 01/09/18 09:16 Dose: 20 mg Metoprolol Tartrate (Lopressor) 25 mg PO BID [facility] Last Admin: 01/09/18 09:18 Dose: Not Given Oxycodone/Acetaminophen (Percocet 5/325 Mg Tab) 1 tab PO Q4 PRN PRN Reason: Pain, moderate (4-7) Stop: 01/10/18 14:15 Pantoprazole Sodium (Protonix Inj) 40 mg IVP DAILY [facility] Last Admin: 01/09/18 09:16 Dose: 40 mg Polyethylene Glycol (Miralax) 17 gm PO DAILY PRN PRN Reason: Constipation Pravastatin Sodium (Pravachol) 20 mg PO HS [facility] Last Admin: 01/08/18 22:35 Dose: 20 mg Simethicone (Mylicon Chew Tab) 80 mg PO TID PRN PRN Reason: Flatulence Last Admin: 01/09/18 09:24 Dose: 80 mg Vitamin B Complex/Vit C/Folic Acid (Nephro-Chey) 1 tab PO DAILY [facility] Last Admin: 01/09/18 09:17 Dose: 1 tab - Labs Labs: 01/06/18 00:08 01/08/18 06:10 PT 12.7 Seconds (9.8-13.1) 01/06/18 00:08 INR 1.1 (0.9-1.2) 01/06/18 00:08 APTT 33.6 Seconds (25.6-37.1) 01/06/18 00:08
== END 2018-01-09 15:03 | disposition home or self-care (01) | DRG 640 ==
LOC: H.ER 22:31 → H.ERHOLD 01-06 01:56 → H.TEL 01-06 04:24
PROVIDERS: ADMIT Internal Medicine; ATTEND Internal Medicine
PROC: 5A1D70Z Performance of Urinary Filtration, Intermittent, Less than 6 Hours Per Day (ICD-10-PCS; principal; 2018-01-06)
DX: E87.5 Hyperkalemia (principal); N18.6 End stage renal disease; K92.0 Hematemesis; N17.9 Acute kidney failure, unspecified; I12.0 Hypertensive chronic kidney disease with stage 5 chronic kidney disease or end stage renal disease; N25.81 Secondary hyperparathyroidism of renal origin; G89.29 Other chronic pain; Z91.15 Patient's noncompliance with renal dialysis; Z96.653 Presence of artificial knee joint, bilateral; Z99.2 Dependence on renal dialysis; E78.00 Pure hypercholesterolemia, unspecified; Z91.013 Allergy to seafood; D63.8 Anemia in other chronic diseases classified elsewhere; R10.84 Generalized abdominal pain; K29.70 Gastritis, unspecified, without bleeding

== ENCOUNTER 2018-01-13 15:38 | Emergency (ER) | payer MEDICARE, MEDICAID ==
[2018-01-13 15:44] VITALS: RESP 16; TEMP 97.3
--- NOTE | 2018-01-13 16:06 | ED PDOC ---
Syncope/Near Syncope/Dizziness Time Seen by Provider: 01/13/18 15:56 Chief Complaint (Nursing): Dizziness/Lightheaded History Per: Patient Onset/Duration Of Symptoms: Days (1) Current Symptoms Are (Timing): Better Activity At Onset Of Symptoms: Sitting Associated Symptoms Preceding Syncopal Episode: Lightheadedness Seizure Or Post-ictal Symptoms: None Fall Associated With With Symptoms: No Additional Complaint(s): Chest pain and dizziness while undergoing dialysis earlier today. Found to have low BP but was able to complete dialysis. Feels better now. No chest pain but still lightheaded. BP in ED 88/51 Past Medical History Vital Signs: Last Vital Signs Temp 97.3 F L 01/13/18 15:42 Pulse 93 H 01/13/18 15:42 Resp 16 01/13/18 15:42 BP 93/60 L 01/13/18 15:42 Pulse Ox 97 01/13/18 15:42 - Medical History PMH: Anemia, HTN, Hypercholesterolemia, Hyperthyroidism, Peripheral Edema, End Stage Renal Disease (dialysis T//Tue), Chronic Kidney Disease Denies: HIV, Kidney Stones - Family History Family History: States: Unknown Family Hx - Immunization History Hx Tetanus Toxoid Vaccination: No Hx Influenza Vaccination: Yes Hx Pneumococcal Vaccination: Yes - Home Medications Home Medications: Ambulatory Orders Medication Instructions Recorded Calcitriol 0.5 mcg PO TID 06/05/17 Docusate [Colace] 100 mg PO TID 06/05/17 HYDROmorphone [Dilaudid] 2 mg PO Q6 06/05/17 Simvastatin 10 mg PO HS 12/10/17 B Complex W-C No.20/Folic Acid 1 mg PO DAILY 12/23/17 [Nephrocaps Softgel] Calcium Carbonate [Oscal] 1 tab PO BID 12/23/17 Cinacalcet [Sensipar] 30 mg PO DAILY 12/23/17 Metoprolol Tartrate [Lopressor] 25 mg PO BID 12/23/17 Psyllium Husk/Aspartame [Metamucil 1 packet PO DAILY 12/23/17 Sugar-Free Powder] Ranitidine HCl [Heartburn Relief] 150 mg PO BID 12/23/17 - Allergies Allergies/Adverse Reactions: Allergies Allergy/AdvReac Type Severity Reaction Status Date / Time adhesive tape Allergy RASH Verified 01/13/18 15:45 Iodinated Contrast- Oral and Allergy ANAPHYLAXIS Verified 01/13/18 15:42 IV Dye iodine Allergy ANAPHYLAXIS Verified 01/13/18 15:42 pantoprazole [From Protonix] Allergy ANAPHYLAXIS Verified 01/13/18 15:42 shellfish derived Allergy ANAPHYLAXIS Verified 01/05/18 22:40 Review of Systems ROS Statement: Except As Marked, All Systems Reviewed And Found Negative Cardiovascular: Positive for: Chest Pain Neurological: Positive for: Dizziness Physical Exam - Reviewed Nursing Documentation Reviewed: Yes Vital Signs Reviewed: Yes - Physical Exam Appears: Positive for: Non-toxic, No Acute Distress Head Exam: Positive for: ATRAUMATIC, NORMAL INSPECTION, NORMOCEPHALIC Skin: Positive for: Normal Color, Warm, DRY Eye Exam: Positive for: EOMI, Normal appearance, PERRL ENT: Positive for: Normal ENT Inspection Neck: Positive for: Normal, Painless ROM Cardiovascular/Chest: Positive for: Regular Rate, Rhythm Respiratory: Positive for: CNT, Normal Breath Sounds Gastrointestinal/Abdominal: Positive for: Normal Exam, Bowel Sounds, Soft Back: Positive for: Normal Inspection Extremity: Positive for: Other (Fistula left bicep) Neurologic/Psych: Positive for: Alert, Oriented - ECG O2 Sat by Pulse Oximetry: 97 Disposition - Clinical Impression Clinical Impression: ESRD on hemodialysis - Patient ED Disposition Is Patient to be Admitted: No - Disposition Disposition: Left W/O Treatment Disposition Time: 17:30 Condition: FAIR Forms: [facility] ([place])
[2018-01-13 17:30] VITALS: BP 102/65; PULSE 82
[2018-01-13 17:42] VITALS: O2SAT 97
== END 2018-01-13 17:10 | disposition left against medical advice (07) ==
LOC: H.ER 15:38
DX: N18.6 End stage renal disease (principal); Z99.2 Dependence on renal dialysis; I12.0 Hypertensive chronic kidney disease with stage 5 chronic kidney disease or end stage renal disease; E78.00 Pure hypercholesterolemia, unspecified; E05.90 Thyrotoxicosis, unspecified without thyrotoxic crisis or storm

== ENCOUNTER 2018-01-21 01:59 | Emergency (ER) | payer MEDICARE, MEDICAID ==
[2018-01-21 02:10] VITALS: BP 98/61; PULSE 109; RESP 16; TEMP 98.1; O2SAT 98
[2018-01-21] MEDS ORDERED: Alum-Mag Hydrox-Simethicone Susp (30 mL) PO ONE (03:29)
[2018-01-21] MEDS ORDERED: Alum-Mag Hydrox-Simethicone Susp (30 mL) ONE (03:37)
--- NOTE | 2018-01-21 03:40 | ED PDOC ---
HPI: Abdomen Time Seen by Provider: 01/21/18 02:14 Chief Complaint (Nursing): GI Problem Chief Complaint (Provider): GI Problem History Per: Patient History/Exam Limitations: no limitations Additional Complaint(s): 37 year old male with a past medical history of end stage renal disease (ESRD), hyperparathyroidism, multiple AV fistulas, and recurrent abdominal surgeries who presents to the emergency department with a complaint of an abdominal pain, nausea and vomiting since 09:30 am yesterday, 01/20/2018. Patient was nasoues after dialysis treatment and decided to come to the emergency department after he could not get comfortable. Patient is well known to the provider and emergency department for multiple visits with similar presentations and opiate seeking behavior. Of note, patient advised that he will not receive opiates and states he only wants medications for nausea. Past Medical History Reviewed: Historical Data, Nursing Documentation, Vital Signs Vital Signs: Last Vital Signs Temp 98.1 F 01/21/18 02:05 Pulse 109 H 01/21/18 02:05 Resp 16 01/21/18 02:05 BP 98/61 L 01/21/18 02:05 Pulse Ox 98 01/21/18 03:45 - Medical History PMH: Anemia, HTN, Hypercholesterolemia, Hyperthyroidism, Peripheral Edema, End Stage Renal Disease (dialysis T//Tue), Chronic Kidney Disease Denies: HIV, Kidney Stones - Family History Family History: States: Unknown Family Hx - Immunization History Hx Tetanus Toxoid Vaccination: No Hx Influenza Vaccination: Yes Hx Pneumococcal Vaccination: Yes - Home Medications Home Medications: Ambulatory Orders Medication Instructions Recorded Calcitriol 0.5 mcg PO TID 06/05/17 Docusate [Colace] 100 mg PO TID 06/05/17 HYDROmorphone [Dilaudid] 2 mg PO Q6 06/05/17 Simvastatin 10 mg PO HS 12/10/17 B Complex W-C No.20/Folic Acid 1 mg PO DAILY 12/23/17 [Nephrocaps Softgel] Calcium Carbonate [Oscal] 1 tab PO BID 12/23/17 Cinacalcet [Sensipar] 30 mg PO DAILY 12/23/17 Metoprolol Tartrate [Lopressor] 25 mg PO BID 12/23/17 Psyllium Husk/Aspartame [Metamucil 1 packet PO DAILY 12/23/17 Sugar-Free Powder] Ranitidine HCl [Heartburn Relief] 150 mg PO BID 12/23/17 Metoclopramide [Reglan] 10 mg PO Q6 PRN #6 tab 01/21/18 - Allergies Allergies/Adverse Reactions: Allergies Allergy/AdvReac Type Severity Reaction Status Date / Time adhesive tape Allergy RASH Verified 01/13/18 15:45 Iodinated Contrast- Oral and Allergy ANAPHYLAXIS Verified 01/13/18 15:42 IV Dye iodine Allergy ANAPHYLAXIS Verified 01/13/18 15:42 pantoprazole [From Protonix] Allergy ANAPHYLAXIS Verified 01/13/18 15:42 shellfish derived Allergy ANAPHYLAXIS Verified 01/05/18 22:40 Review of Systems ROS Statement: Except As Marked, All Systems Reviewed And Found Negative (As per HPI, otherwise negative) Constitutional: Negative for: Fever, Chills Gastrointestinal: Positive for: Nausea, Vomiting, Abdominal Pain Physical Exam - Reviewed Nursing Documentation Reviewed: Yes Vital Signs Reviewed: Yes - Physical Exam Appears: Positive for: No Acute Distress Head Exam: Positive for: NORMAL INSPECTION Skin: Positive for: Normal Color, Warm, Dry Cardiovascular/Chest: Positive for: Regular Rate, Rhythm. Negative for: Murmur Respiratory: Positive for: Normal Breath Sounds. Negative for: Accessory Muscle Use, Respiratory Distress Gastrointestinal/Abdominal: Positive for: Normal Exam, Soft. Negative for: Tenderness Extremity: Positive for: Normal ROM. Negative for: Pedal Edema Neurologic/Psych: Positive for: Alert, Oriented (x3) - ECG O2 Sat by Pulse Oximetry: 98 (RA) Pulse Ox Interpretation: Normal Medical Decision Making Medical Decision Making: Time: 0330 Initial Impression: Gastritis. GI cocktail and zofran ordered. Initial Plan: Maalox Plus 30 ml PO Pepcid 20 mg PO Lidocaine 2% Viscous 10 ml PO Zofran ODT 4 mg PO Reevaluation Scribe Attestation: Documented by Arlene Holland acting as a scribe for Howard Coleman MD. Scribe Attestation: All medical record entries made by the Scribe were at my direction and personally dictated by me. I have reviewed the chart and agree that the record accurately reflects my personal performance of the history, physical exam, medical decision making, and the department course for this patient. I have also personally directed, reviewed, and agree with the discharge instructions and disposition. Disposition - Clinical Impression Clinical Impression: Gastritis - Disposition Disposition: Routine/Home Disposition Time: 01:00 Condition: STABLE Prescriptions: Metoclopramide [Reglan] 10 mg PO Q6 PRN #6 tab PRN Reason: Nausea/Vomiting Instructions: Gastritis Forms: [facility] ([place])
== END 2018-01-21 03:45 | disposition home or self-care (01) ==
LOC: H.ER 01:59
DX: K29.70 Gastritis, unspecified, without bleeding (principal); I12.0 Hypertensive chronic kidney disease with stage 5 chronic kidney disease or end stage renal disease; Z99.2 Dependence on renal dialysis; E05.90 Thyrotoxicosis, unspecified without thyrotoxic crisis or storm; E78.00 Pure hypercholesterolemia, unspecified